=== PATIENT | male | born 1945 | race Two or more races ===

== ENCOUNTER → 2018-09-29 | Outpatient (CLI) | payer BC ==
[~2018-09-29] MED LIST: REGADENOSON 0.4 MG/5 ML DISP.SYRIN. IV ONE
--- NOTE | 2018-09-29 10:09 | CARD ---
MR#: [id number] Date of Study: 09/29/2018 Ordering Physician: CHARLENE HERNANDEZ, Referring Physician: CHARLENE HERNANDEZ Tech: Ashley Haney RDCS APPROVED REPORT EXAM: Two-dimensional and M-mode echocardiogram with Doppler and color Doppler. Other Information Quality : Good INDICATION Cardiac Disease: CAD 2D DIMENSIONS Left Atrium(2D)4.2 (1.6-4.0cm)IVSd1.3 (0.7-1.1cm) Aortic Root(2D)2.9 (2.0-3.7cm)LVDd5.0 (3.9-5.9cm) LVOT Diameter2.2 (1.8-2.4cm)PWd1.1 (0.7-1.1cm) LVDs3.8 (2.5-4.0cm)FS (%) 20.0 % SV58.2 mlLVEF(%)40.0 (>50%) Aortic Valve AoV Peak Konrad.122.2cm/sAoV VTI25.4cm AO Peak GR.6.0mmHgLVOT Peak Konrad.68.1cm/s LVOT VTI 16.63cmAO Mean GR.3mmHg LUIS (VMAX)2.10xk9UYJ (VTI)2.43cm2 AI P 1/2 Qpph040ha Mitral Valve MV E Cnjixjmt04.9cm/sMV DECEL QWGJ765oj MV A Ghpshlsp65.8cm/sMV JQW33wq E/A Ratio1.2MVA (PHT)4.39cm2 TDI E/Lateral E'31.7E/Medial E'22.8 Tricuspid Valve TR P. Ljkgtcmx682ze/sRAP NVTBVZZG5fhXj TR Peak Gr.76ngMkQNBJ06cnKb Pulmonary Vein S1 Wyubsokv57.4cm/sD2 Hnmtetth44.1cm/s LEFT VENTRICLE The left ventricle is normal size. There is mild asymmetric septal hypertrophy. Left ventricle systol ic function is mildly impaired. The Ejection Fraction is 40-45%. Basal inferior wall hypokinesis. RIGHT VENTRICLE The right ventricle is normal size. The right ventricular systolic function is normal. ATRIA The left atrium is mildly dilated. The right atrium size is normal. The interatrial septum is intact with no evidence for an atrial septal defect or patent foramen ovale as noted on 2-D or Doppler imagi ng. AORTIC VALVE The aortic valve is calcified but opens well. Doppler and Color Flow revealed mild to moderate aortic regurgitation. There is no significant aortic valvular stenosis. MITRAL VALVE The mitral valve is calcified but opens well. There is no evidence of mitral valve prolapse. There is no mitral valve stenosis. Doppler and Color-flow revealed mild to moderate mitral regurgitation. TRICUSPID VALVE The tricuspid valve is normal in structure and function. Doppler and Color Flow revealed trace tricus pid regurgitation. The PA pressure was estimated at 14 mmHg. There is no tricuspid valve stenosis. PULMONIC VALVE The pulmonic valve is not well visualized. Doppler and Color Flow revealed trace to mild pulmonic connie vular regurgitation. There is no pulmonic valvular stenosis. GREAT VESSELS The aortic root is normal in size. The ascending aorta is normal in size. The IVC is normal in size a nd collapses >50% with inspiration. PERICARDIAL EFFUSION There is no evidence of significant pericardial effusion. Critical Notification Critical Value: No <Conclusion> Basal inferior wall hypokinesis. The Ejection Fraction is 40-45%. Mild to moderate aortic regurgitation. Mild to moderate mitral regurgitation. Trace tricuspid regurgitation. The PA pressure was estimated at 14 mmHg. There is no evidence of significant pericardial effusion. Signed by : Charlene Hernandez, Electronically Approved : 09/29/2018 10:07:24
[2018-09-29] MEDS: REGADENOSON 0.4 MG/5 ML DISP.SYRIN. IV ONE (10:16)
--- NOTE | 2018-09-29 12:55 | RAD ---
MR#: [id number] Date of Study: 09/29/2018 Ordering Physician: CHARLENE HERNANDEZ, Referring Physician: MATILDA SERRANO Tech: Eyad Sands RT (R) (N)CELSO Mejia, CORINA (R) (N) APPROVED REPORT Test Type: Pharmacological Stress Nurse/Tech: Tania Oneal R.N./Nancie Hawthorne RN Test Indications: CP, CAD Cardiac History: Hypertension, CAD, ME with stents 8 years ago. Medications: See Electronic Medical Record Medical History: See Electronic Medical Record Resting ECG: SB with BBB and inverted t waves. Resting Heart Rate: 53 bpm Resting Blood Pressure: 191/88mmHg Pretest Chest Pain: No chest pain Nurse/Tech Notes S1S2, Lungs CTA Consent: The procedure was explained to the patient in lay terms. Informed consent was witnessed. Reji eout was entered into [employer]. History and Stress Test performed by RT Fito (R) (N) Pharm. Details Pharmacologic stress testing was performed using 0.4mg per 5ml of regadenoson given intravenously ove r 7-10 seconds. Stress Symptoms Dyspnea POST EXERCISE Reason for Termination: Infusion complete Max HR: 102 bpm Max Blood Pressure: 194/89mmHg Chest Pain: No. Arrhythmia: No. BBB and inverted t waves as previous. ST Change: No. INTERPRETATION Stress EKG Conclusion: Baseline EKG showed sinus rhythm with old inferior infarct. Non diagnostic ch anges at peak stress. No arrhythmias. Imaging Protocol IMAGE PROTOCOL: Rest Tc-99m/stress Tc-99m 1 day Rest: Stress: Viability: Radiopharm.Tc99m TjydzhewuHu04i Sestamibi Dose9.8mCi 32mCi Duration 15min. 10min. Img Date 09/29/2018 09/29/2018 Inj-Img Fjjt30dal. 60min. Rest Admin Site:IV - Right AntecubitalAdministrator:CELSO Mejia, CORINA (R)(N) Stress Admin Site: IV - Right AntecubitalAdministrator: Carroll Callaway, RT (R)(N) STRESS DATA End Diast. Vol.165.0mlAv. Heart Rate64.0bpm End Syst. Vol.89.0mlCO Index BSA0.0L/min Myocardial Ttyt780.0gEject. Plilhgdw63.0% Stress Rates Pk. Fill Rate1.77EDV/secLVtime Pk. Fill 90.04msec Pk. Empty Rate2.01ESV/secLVtime Pk. Edlrb815.35msec 08/26 Pk. Fill1.24EDV/sec Stress Scores Regional WT1.00Summed WT27.00 Regional WM0.00Summed WM24.00 LV Perfusion Scintigraphic images showed large predominantly fixed defect involving the inferior and inferolateral renae consistent with previous myocardial infarction with very small amount of reversibility consist ent with wilmer-infarct ischemia. Wall Motion Severe hypokinesis of the base to mid inferior wall with ejection fraction calculated at 46%. LV Perf. Quant 17 Seg. SSS24.00 17 Seg. SRS21.00 17 Seg. SDS4.00 Stress Defect Extent (% LAD)2.50Rest Defect Extent (% LAD)0.00Rev. Defect Extent (% LAD)2.50 Stress Defect Extent (% LCX) 93.80Rest Defect Extent (% LCX)86.30Rev. Defect Extent (% LCX)43.80 Stress Defect Extent (% RCA)58.90Rest Defect Extent (% RCA)64.40Rev. Defect Extent (% RCA)0.00 Stress Defect Extent (% STEVAN)38.70Rest Defect Extent (% STEVAN)33.90Rev. Defect Extent (% STEVAN)14.10 Conclusion 1. Regadenoson cardioisotope stress test showed a large infarct involving the inferior and inferolate ral renae with very small amount of wilmer-infarct ischemia. 2. Severe hypokinesis of the base to mid inferior wall with ejection fraction calculated at 46%. 3. Low to intermediate risk for cardiac events. Signed by : Charlene Hernandez, Electronically Approved : 09/29/2018 12:53:15
== END | disposition home or self-care (01) ==
LOC: ECHO 08:11
PROVIDERS: ATTEND Internal Medicine Cardiovascular Disease
DX: I08.0 Rheumatic disorders of both mitral and aortic valves (principal); I25.10 Atherosclerotic heart disease of native coronary artery without angina pectoris; I25.2 Old myocardial infarction; I10 Essential (primary) hypertension
CPT/HCPCS: 78452; 93017; 93306; 96374; A9500; J2785

== ENCOUNTER 2019-10-09 18:19 | Inpatient (IN) | payer BC ==
[~2019-10-09] VITALS: Ht 167.6 cm; Wt 70.8 kg
--- NOTE | 2019-10-09 20:39 | PHYS DOC ---
Past Medical History Past Medical History: Diabetes-Type I Additional Past Surgical Histo: CARDIAC STENTS Smoking Status: Never Smoker Alcohol Use: None Adult General Chief Complaint Chief Complaint: SYNCOPE HPI HPI 74-year-old male with underlying history of diabetes, hypertension, CAD presents to the emergency department with complaints of syncope. Family states this happened around approximately 11 AM today, unwitnessed, patient states he had no chest pain or shortness of breath prior to incident however became dizzy and lightheaded and passed out. This lasted approximately 2-3 minutes according to family. He has no history of syncopal episodes in the past. Patient denies any chest pain or shortness breath this time. Patient states nothing makes pain worse, nothing makes his pain better. Review of Systems Review of Systems Constitutional: Denies fever or chills [] Respiratory: Denies cough or shortness of breath [] Cardiovascular: No additional information not addressed in HPI [] GI: Denies abdominal pain, nausea, vomiting, bloody stools or diarrhea [] Musculoskeletal: Denies back pain or joint pain [] Integument: Denies rash or skin lesions [] Neurologic: headache, no focal weakness or sensory changes [] All other systems were reviewed and found to be within normal limits, except as documented in this note. Current Medications Current Medications Current Medications Medications (Trade) Dose Ordered Sig/[facility] Start Time Stop Time Status Last Admin Dose Admin Aspirin (Children'S Aspirin) 324 mg 1X ONCE 10/09/19 22:00 10/09/19 22:01 DC 10/09/19 21:50 324 MG Heparin Sodium (Porcine) (Heparin Sodium) 2,050 unit PRN Q6HRS PRN 10/09/19 21:45 10/09/19 21:52 2,050 UNIT Heparin Sodium/ Dextrose 250 ml @ 0 mls/hr CONT PRN 10/09/19 21:45 10/09/19 22:03 8.4 MLS/HR Allergies Allergies Allergies Coded Allergies Type Severity Reaction Last Updated Verified No Known Drug Allergies 09/29/18 No Physical Exam Physical Exam Constitutional: Well developed, well nourished, no acute distress, non-toxic appearance. [] HENT: Normocephalic, atraumatic, bilateral external ears normal, oropharynx moist, no oral exudates, nose normal. [] Eyes: PERRLA, EOMI, conjunctiva normal, no discharge. [] Neck: Normal range of motion, no tenderness, supple, no stridor. [] Cardiovascular:Heart rate regular rhythm, no murmur [] Lungs & Thorax: Bilateral breath sounds clear to auscultation [] Abdomen: Bowel sounds normal, soft, no tenderness, no masses, no pulsatile masses. [] Skin: Warm, dry, no erythema, no rash. [] Back: No tenderness, no CVA tenderness. [] Extremities: No tenderness, no edema. [] Neurologic: Alert and oriented X 3, no focal deficits noted. [] Psychologic: Affect normal, judgement normal, mood normal. [] Current Patient Data Vital Signs Vital Signs Date Time Temp Pulse Resp B/P (MAP) Pulse Ox O2 Delivery O2 Flow Rate FiO2 10/09/19 19:40 98.4 92 17 151/90 (110) 92 Room Air 98.4 Lab Values Laboratory Tests Test 10/09/19 19:56 10/09/19 20:05 Glucose (Fingerstick) 295 mg/dL (70-99) H White Blood Count 7.6 x10^3/uL (4.0-11.0) Red Blood Count 4.91 x10^6/uL (4.30-5.70) Hemoglobin 15.4 g/dL (13.0-17.5) Hematocrit 45.0 % (39.0-53.0) Mean Corpuscular Volume 92 fL (79-100) Mean Corpuscular Hemoglobin 31 pg (25-35) Mean Corpuscular Hemoglobin Concent 34 g/dL (31-37) Red Cell Distribution Width 13.0 % (11.5-14.5) Platelet Count 138 x10^3/uL (140-400) L Neutrophils (%) (Auto) 80 % (31-73) H Lymphocytes (%) (Auto) 10 % (24-48) L Monocytes (%) (Auto) 9 % (0-9) Eosinophils (%) (Auto) 0 % (0-3) Basophils (%) (Auto) 1 % (0-3) Neutrophils # (Auto) 6.1 x10^3/uL (1.8-7.7) Lymphocytes # (Auto) 0.8 x10^3/uL (1.0-4.8) L Monocytes # (Auto) 0.7 x10^3/uL (0.0-1.1) Eosinophils # (Auto) 0.0 x10^3/uL (0.0-0.7) Basophils # (Auto) 0.0 x10^3/uL (0.0-0.2) D-Dimer (Amelia) 0.68 ug/mlFEU (0.00-0.50) H Sodium Level 130 mmol/L (136-145) L Potassium Level 4.3 mmol/L (3.5-5.1) Chloride Level 94 mmol/L (98-107) L Carbon Dioxide Level 26 mmol/L (21-32) Anion Gap 10 (6-14) Blood Urea Nitrogen 17 mg/dL (8-26) Creatinine 1.1 mg/dL (0.7-1.3) Estimated GFR (Cockcroft-Gault) 65.6 BUN/Creatinine Ratio 15 (6-20) Glucose Level 305 mg/dL (70-99) H Calcium Level 8.5 mg/dL (8.5-10.1) Magnesium Level 1.7 mg/dL (1.8-2.4) L Total Bilirubin 0.6 mg/dL (0.2-1.0) Aspartate Amino Transferase (AST) 34 U/L (15-37) Alanine Aminotransferase (ALT) 46 U/L (16-63) Alkaline Phosphatase 120 U/L (46-116) H Troponin I Quantitative 0.085 ng/mL (0.000-0.055) Total Protein 7.5 g/dL (6.4-8.2) Albumin 3.4 g/dL (3.4-5.0) Albumin/Globulin Ratio 0.8 (1.0-1.7) L Laboratory Tests 10/09/19 20:05 Laboratory Tests 10/09/19 20:05 EKG EKG EKG reviewed, ST depression laterally, left axis deviation, heart rate 86, normal sinus rhythm, no STEMI, interpretation time 1999[] Radiology/Procedures Radiology/Procedures [facility] [address] [place], [place] [id number] IMAGING REPORT Signed PATIENT: JETT BARNEYACCOUNT: [id number] : 1945 LOCATION: ER AGE: 74 SEX: M EXAM STATUS: REG ER ORD. PHYSICIAN: SARAH BROWN MD REASON: Syncope, Head injury, + LOC PROCEDURE: CT HEAD WO CONTRAST Exam: CT head INDICATION: Syncope, head injury TECHNIQUE: Sequential axial images through the head were obtained without the administration of IV contrast. Comparisons: None FINDINGS: No focal parenchymal lesion or hemorrhage is identified. There is no midline shift or sulcal effacement. No acute vascular territory infarction is identified. Rod-white distinction is preserved. The ventricular system is within normal limits without compression hydrocephalus. The basal cisterns are well maintained. Mucosal thickening in the left maxillary sinus and left nasal cavity. No acute fractures. IMPRESSION: No acute intracranial abnormality. Sinus disease as described above. Exposure: One or more of the following in the visualized dose reduction techniques were utilized for this examination: 1. Automated exposure control 2. Adjustment of the MA and/or KV according to patient size Use of iterative of reconstructive technique Electronically signed by: Elsi Birmingham MD (10/09/2019 9:17 PM) [id number] DICTATED and SIGNED BY: ELSI BIRMINGHAM MD DATE: 10/09/192116 [] Chest xray reveals no evidence of acute process - wet read 2202 Course & Med Decision Making Course & Med Decision Making Pertinent Labs and Imaging studies reviewed. (See chart for details) []74-year-old male with underlying history of diabetes, hypertension, CAD presents to the emergency department with complaints of syncope. Family states this happened around approximately 11 AM today, unwitnessed, patient states he had no chest pain or shortness of breath prior to incident however became dizzy and lightheaded and passed out. This lasted approximately 2-3 minutes according to family. He has no history of syncopal episodes in the past. Patient denies any chest pain or shortness breath this time. Patient states nothing makes pain worse, nothing makes his pain better. Laboratory values reviewed, sodium 130, magnesium 1.7, troponin 0.085, blood glucose 355. IVF provided in ER ASA/Heparin drip initiated ER - cardiology consult placed Magnesium replaced in ER Discussed admit with Cardiology Yasmeen Disclaimer Dragsahil Disclaimer This electronic medical record was generated, in whole or in part, using a voice recognition dictation system. Departure Departure Impression: Primary Impression: Syncope and collapse Additional Impressions: NSTEMI (non-ST elevated myocardial infarction) Hypomagnesemia Disposition: ADMITTED INPATIENT Admitting Physician: CARLYN Condition: STABLE Referrals: NO PCP (PCP) Critical Care Time Critical care time was 35 minutes exclusive of procedures. Problem Qualifiers SARAH BROWN MD Oct 09, 2019 20:39
[2019-10-09 20:41] LABS: BASO % 1 % (0-3); EOS % 0 % (0-3); HEMOGLOBIN 15.4 g/dL (13.0-17.5); LYMPH # 0.8 x10^3/uL (1.0-4.8); LYMPH % 10 % (24-48); MEAN CORPUSCULAR HEMOGLOBIN 31 pg (25-35); MEAN CORPUSCULAR HGB CONC 34 g/dL (31-37); MEAN CORPUSCULAR VOLUME 92 fL (79-100); MONO # 0.7 x10^3/uL (0.0-1.1); MONO % 9 % (0-9); NEUT # 6.1 x10^3/uL (1.8-7.7); NEUT % 80 % (31-73); PLATELET COUNT 138 x10^3/uL (140-400); RED BLOOD COUNT 4.91 x10^6/uL (4.30-5.70); WHITE BLOOD COUNT 7.6 x10^3/uL (4.0-11.0)
[2019-10-09 20:48] LABS: CALCIUM 8.5 mg/dL (8.5-10.1); CREATININE 1.1 mg/dL (0.7-1.3); GFR 65.6; POTASSIUM 4.3 mmol/L (3.5-5.1)
[2019-10-09 20:54] LABS: ALBUMIN 3.4 g/dL (3.4-5.0); ALBUMIN/GLOBULIN RATIO 0.8 (1.0-1.7); MAGNESIUM 1.7 mg/dL (1.8-2.4); TOTAL BILIRUBIN 0.6 mg/dL (0.2-1.0); TOTAL PROTEIN 7.5 g/dL (6.4-8.2)
--- NOTE | 2019-10-09 21:20 | RAD ---
Exam: CT head INDICATION: Syncope, head injury TECHNIQUE: Sequential axial images through the head were obtained without the administration of IV contrast. Comparisons: None FINDINGS: No focal parenchymal lesion or hemorrhage is identified. There is no midline shift or sulcal effacement. No acute vascular territory infarction is identified. Rod-white distinction is preserved. The ventricular system is within normal limits without compression hydrocephalus. The basal cisterns are well maintained. Mucosal thickening in the left maxillary sinus and left nasal cavity. No acute fractures. IMPRESSION: No acute intracranial abnormality. Sinus disease as described above. Exposure: One or more of the following in the visualized dose reduction techniques were utilized for this examination: 1. Automated exposure control 2. Adjustment of the MA and/or KV according to patient size Use of iterative of reconstructive technique Electronically signed by: Elsi Johnson MD (10/09/2019 9:17 PM) [id number]
[2019-10-09] MEDS ORDERED: HEPARIN for IV BOLUS 10,000 UNIT/10 ML VIAL. IV PRN (21:45)
[2019-10-09] MEDS ORDERED: ASPIRIN CHEWABLE 81 MG TABLET. PO ONE (22:00)
[2019-10-09] MEDS: HEPARIN 25,000UTS/250ML PREMIX 250 ML IV PRN (22:03)
[2019-10-09] MEDS ORDERED: ONDANSETRON PF 4 MG/2 ML VIAL. IV PRN (22:30)
[2019-10-09] MEDS ORDERED: MORPHINE SULFATE 2 MG/ML VIAL. IV PRN (22:30)
[2019-10-09] MEDS ORDERED: DEXTROSE 50% 25 GM / 50ML DISP.SYRIN. IV PRN (22:30)
[2019-10-09] MEDS ORDERED: ACETAMINOPHEN 325 MG TABLET. PO PRN (22:30)
[2019-10-09] MEDS ORDERED: NITROGLYCERIN SUBLINGUAL 0.4 MG BOTTLE OF 25. SL PRN (22:30)
--- NOTE | 2019-10-09 22:52 | EKG ---
[facility] [address] [place] [address] Test Date: 2019-10-09 Test Time: 19:55:38 Pat Name: JETT KAURUIHALI ALVARES Department: Room: Gender: M Driver/Refuse Collector: : 1945 Requested By: SARAH BROWN Order Number: [id number] Reading MD: Measurements Intervals [place] Rate: 86 P: 24 IN: 174 QRS: -7 QRSD: 106 T: 168 QT: 376 QTc: 453 Interpretive Statements SINUS RHYTHM LEFTWARD AXIS QRS(T) CONTOUR ABNORMALITY CONSIDER ANTEROLATERAL INFARCT CONSISTENT WITH INFERIOR INFARCT AGE UNDETERMINED ABNORMAL ECG RI6.01 No previous ECG available for comparison
[2019-10-09] MEDS ORDERED: IV NORMAL SALINE 1000ML BAG 1,000 ML IV ONE (23:00)
--- NOTE | 2019-10-09 23:14 | RAD ---
AP portable chest radiograph 10/09/2019 Clinical History: Syncope. An AP erect portable digital radiograph of the chest was obtained. The cardiac silhouette is borderline enlarged. The thoracic aorta is mildly tortuous. Atherosclerotic calcification thoracic aorta is seen. No acute pulmonary infiltrate is noted. No pneumothorax or pleural effusion is seen. Degenerative changes are seen involving the thoracic spine. IMPRESSION: No acute abnormality is seen. Electronically signed by: Richard Merrill MD (10/09/2019 11:11 PM) [id number]
[2019-10-10] MEDS: ANTI-COAG MONITOR BY PHARMACY. MC PRN (04:03)
[2019-10-10 05:02] LABS: BASO % 1 % (0-3); EOS % 0 % (0-3); HEMATOCRIT 41.6 % (39.0-53.0); HEMOGLOBIN 14.2 g/dL (13.0-17.5); LYMPH # 1.6 x10^3/uL (1.0-4.8); LYMPH % 27 % (24-48); MEAN CORPUSCULAR HEMOGLOBIN 31 pg (25-35); MEAN CORPUSCULAR HGB CONC 34 g/dL (31-37); MEAN CORPUSCULAR VOLUME 92 fL (79-100); MONO # 0.6 x10^3/uL (0.0-1.1); MONO % 10 % (0-9); NEUT # 3.7 x10^3/uL (1.8-7.7); NEUT % 61 % (31-73); PLATELET COUNT 123 x10^3/uL (140-400); RED BLOOD COUNT 4.51 x10^6/uL (4.30-5.70); RED CELL DISTRIBUTION WIDTH 13.1 % (11.5-14.5)
[2019-10-10 05:43] LABS: CALCIUM 8.1 mg/dL (8.5-10.1); CREATININE 1.1 mg/dL (0.7-1.3); GFR 65.6; POTASSIUM 3.9 mmol/L (3.5-5.1); TOTAL BILIRUBIN 0.4 mg/dL (0.2-1.0); TOTAL PROTEIN 6.1 g/dL (6.4-8.2)
[2019-10-10] MEDS ORDERED: INSULIN LISPRO 300 UNITS/3 ML VIAL. SQ SCH (08:00)
[2019-10-10] MEDS ORDERED: guaiFENesin ORAL 200 MG/10 ML LIQUID. PO PRN (09:00)
[2019-10-10] MEDS ORDERED: ACETAMINOPHEN 325 MG TABLET. PO PRN (09:00)
[2019-10-10] MEDS ORDERED: DOCUSATE SODIUM 100 MG CAPSULE. PO PRN (09:00)
[2019-10-10] MEDS ORDERED: DEXTROSE 50% 25 GM / 50ML DISP.SYRIN. IV PRN (09:00)
[2019-10-10] MEDS ORDERED: ALBUTEROL SULFATE 2.5 MG/3 ML NEBU. NEB PRN (09:00)
[2019-10-10] MEDS ORDERED: ONDANSETRON PF 4 MG/2 ML VIAL. IV PRN (09:00)
[2019-10-10] MEDS ORDERED: ZOLPIDEM 5 MG TABLET. PO PRN (09:00)
[2019-10-10] MEDS: NYSTATIN TOPICAL POWDER 15GM BOTTLE. TP SCH ×2 (09:54→21:00)
[2019-10-10] MEDS: INSULIN LISPRO 300 UNITS/3 ML VIAL. SQ SCH ×2 (12:00→17:36)
[2019-10-10] MEDS: HEPARIN 25,000UTS/250ML PREMIX 250 ML IV PRN ×2 (12:22→23:27)
[2019-10-10 15:00] VITALS: BP 151/80
--- NOTE | 2019-10-10 16:12 | PDOC1 ---
History and Physical Date of Admission Date of Admission 10/10/2019 Identification/Chief Complaint Chief Complaint I will feel well History of Present Illness History of Present Illness Patient is a 74-year-old gentleman with past medical history of diabetes hypertension coronary artery disease who comes today complaining off multiple ailments. The patient relates to me that he has not been feeling well for several months. Daughter is at bedside helping with the history taking. The patient at first did not revealed the main reason for his family members to bring him to the emergency department which was a syncopal episode apparently lasted about 2-3 minutes witnessed with no seizure-like activity. The patient denies any aura-type of symptoms no palpitations no shortness of breath no dyspnea on exertion either no chest pain prior to the incident. The patient denied any coughing spells he was not straining and he did not sent post ictal period. On to have a mildly elevated troponin reason why we were asked to admit the patient. When asked regarding his medical problems the patient says that he takes care of his hypertension diabetes with "herbal medicines". The patient checks his glycemia frequently and as per daughter his readings are in the mid 200s. He does not seem to understand dietary principles of low sodium or low glycemic foods. The patient denies headache no blurred vision no slurred speech no hemiparesis no hemiplegia no paresthesias were reported either no recent ulcers or skin rashes either no nausea vomiting diarrhea no gastroparesis-type of symptoms reported either. Plan of care has been explained detail all concerns were addressed the best of my abilities Past Medical History Cardiovascular: CAD, HTN, Hyperlipidemia Endocrine: Diabetes Current Problem List Problem List Problems Medical Problems: (1) Hypomagnesemia Status: Acute (2) NSTEMI (non-ST elevated myocardial infarction) Status: Acute (3) Syncope and collapse Status: Acute Current Medications Current Medications Current Medications Medications (Trade) Dose Ordered Sig/Tasneem Start Time Stop Time Status Last Admin Dose Admin Acetaminophen (Tylenol) 650 mg PRN Q4HRS PRN 10/10/19 09:00 Albuterol Sulfate (Ventolin Neb Soln) 2.5 mg PRN Q4HRS PRN 10/10/19 09:00 10/10/19 11:53 2.5 MG Aspirin (Children'S Aspirin) 324 mg 1X ONCE 10/09/19 22:00 10/09/19 22:01 DC 10/09/19 21:50 324 MG Dextrose (Dextrose 50%-Water Syringe) 12.5 gm PRN Q15MIN PRN 10/10/19 09:00 Docusate Sodium (Colace) 100 mg PRN BID PRN 10/10/19 09:00 Guaifenesin (Robitussin) 200 mg PRN Q4HRS PRN 10/10/19 09:00 Heparin Sodium (Porcine) (Heparin Sodium) 2,050 unit PRN Q6HRS PRN 10/09/19 21:45 10/09/19 21:52 2,050 UNIT Heparin Sodium/ Dextrose 250 ml @ 0 mls/hr CONT PRN 10/09/19 21:45 10/10/19 12:22 9.8 MLS/HR Info (Anti-Coagulation Monitoring By Pharmacy) 1 each PRN DAILY PRN 10/09/19 22:45 10/10/19 04:03 1 EACH Insulin Human Lispro (HumaLOG) 0-7 UNITS TIDWMEALS 10/10/19 12:00 Morphine Sulfate (Morphine Sulfate) 2 mg PRN Q2HR PRN 10/09/19 22:30 10/10/19 22:29 Nitroglycerin (Nitrostat) 0.4 mg PRN Q5MIN PRN 10/09/19 22:30 10/10/19 22:29 Nystatin (Nystop) 1 bryan BID 10/10/19 09:00 10/10/19 09:54 1 BRYAN Ondansetron HCl (Zofran) 4 mg PRN Q4HRS PRN 10/10/19 09:00 Sodium Chloride 1,000 ml @ 1,000 mls/hr 1X ONCE 10/09/19 23:00 10/09/19 23:59 DC 10/10/19 01:33 1,000 MLS/HR Zolpidem Tartrate (Ambien) 5 mg PRN QHS PRN 10/10/19 09:00 Allergies Allergies Allergies Coded Allergies Type Severity Reaction Last Updated Verified No Known Drug Allergies 09/29/18 No ROS Review of System CONSTITUTIONAL: No fever or chills EYES: No recent changes SKIN: No rash or itching CARDIOVASCULAR: No chest pain, syncope, palpitations, or edema RESPIRATORY: No SOB or cough GASTROINTESTINAL: No nausea, vomiting or abdominal pain NEUROLOGICAL: No headaches or weakness ENDOCRINE: No cold or heat intolerance GENITOURINARY: No urgency or frequency of urination MUSCULOSKELETAL: No back pain or joint pain LYMPHATICS: No enlarged lymph nodes PSYCHIATRIC: No anxiety or depression Physical Exam Physical Exam Gen.: well-developed well-nourished in no apparent distress Head: Normal shape atraumatic Eyes: Pupils equal reactive to light and accommodation, normal conjunctivae and lids Ears: Normal shape Nose: Normal shape no trauma Mouth: No exudates of the back of throat no thrush no lesions Neck: Supple no JVD no carotid bruit or lymphadenopathy no thyromegaly Chest: Lungs clear to auscultation with good inspiratory effort no crackles rales or rhonchi Cardiovascular: S1-S2 regular rhythm no murmurs gallops or rubs Abdomen: Bowel sounds present soft nontender no hepatosplenomegaly appreciated sign Extremities: No clubbing no cyanosis no edema peripheral pulses palpated bilaterally Neurological: Alert awake oriented in person time place and situation, cranial nerves II through XII intact, no motor or sensory deficits appreciated Psych: Appropriate mood, cooperative Vitals Vitals Vital Signs Date Time Temp Pulse Resp B/P (MAP) Pulse Ox O2 Delivery O2 Flow Rate FiO2 10/10/19 15:25 Room Air 10/10/19 15:00 98.7 106 20 151/80 (103) 98.7 10/10/19 11:51 96 Labs Labs Laboratory Tests Test 10/09/19 19:56 10/09/19 20:05 10/10/19 01:15 10/10/19 04:25 Glucose (Fingerstick) 295 mg/dL (70-99) White Blood Count 7.6 x10^3/uL (4.0-11.0) 6.0 x10^3/uL (4.0-11.0) Red Blood Count 4.91 x10^6/uL (4.30-5.70) 4.51 x10^6/uL (4.30-5.70) Hemoglobin 15.4 g/dL (13.0-17.5) 14.2 g/dL (13.0-17.5) Hematocrit 45.0 % (39.0-53.0) 41.6 % (39.0-53.0) Mean Corpuscular Volume 92 fL (79-100) 92 fL (79-100) Mean Corpuscular Hemoglobin 31 pg (25-35) 31 pg (25-35) Mean Corpuscular Hemoglobin Concent 34 g/dL (31-37) 34 g/dL (31-37) Red Cell Distribution Width 13.0 % (11.5-14.5) 13.1 % (11.5-14.5) Platelet Count 138 x10^3/uL (140-400) 123 x10^3/uL (140-400) Neutrophils (%) (Auto) 80 % (31-73) 61 % (31-73) Lymphocytes (%) (Auto) 10 % (24-48) 27 % (24-48) Monocytes (%) (Auto) 9 % (0-9) 10 % (0-9) Eosinophils (%) (Auto) 0 % (0-3) 0 % (0-3) Basophils (%) (Auto) 1 % (0-3) 1 % (0-3) Neutrophils # (Auto) 6.1 x10^3/uL (1.8-7.7) 3.7 x10^3/uL (1.8-7.7) Lymphocytes # (Auto) 0.8 x10^3/uL (1.0-4.8) 1.6 x10^3/uL (1.0-4.8) Monocytes # (Auto) 0.7 x10^3/uL (0.0-1.1) 0.6 x10^3/uL (0.0-1.1) Eosinophils # (Auto) 0.0 x10^3/uL (0.0-0.7) 0.0 x10^3/uL (0.0-0.7) Basophils # (Auto) 0.0 x10^3/uL (0.0-0.2) 0.0 x10^3/uL (0.0-0.2) D-Dimer (Amelia) 0.68 ug/mlFEU (0.00-0.50) Sodium Level 130 mmol/L (136-145) 136 mmol/L (136-145) Potassium Level 4.3 mmol/L (3.5-5.1) 3.9 mmol/L (3.5-5.1) Chloride Level 94 mmol/L (98-107) 101 mmol/L (98-107) Carbon Dioxide Level 26 mmol/L (21-32) 26 mmol/L (21-32) Anion Gap 10 (6-14) 9 (6-14) Blood Urea Nitrogen 17 mg/dL (8-26) 20 mg/dL (8-26) Creatinine 1.1 mg/dL (0.7-1.3) 1.1 mg/dL (0.7-1.3) Estimated GFR (Cockcroft-Gault) 65.6 65.6 BUN/Creatinine Ratio 15 (6-20) 18 (6-20) Glucose Level 305 mg/dL (70-99) 214 mg/dL (70-99) Calcium Level 8.5 mg/dL (8.5-10.1) 8.1 mg/dL (8.5-10.1) Magnesium Level 1.7 mg/dL (1.8-2.4) Total Bilirubin 0.6 mg/dL (0.2-1.0) 0.4 mg/dL (0.2-1.0) Aspartate Amino Transf (AST/SGOT) 34 U/L (15-37) 29 U/L (15-37) Alanine Aminotransferase (ALT/SGPT) 46 U/L (16-63) 43 U/L (16-63) Alkaline Phosphatase 120 U/L (46-116) 107 U/L (46-116) Troponin I Quantitative 0.085 ng/mL (0.000-0.055) 0.099 ng/mL (0.000-0.055) 0.071 ng/mL (0.000-0.055) Total Protein 7.5 g/dL (6.4-8.2) 6.1 g/dL (6.4-8.2) Albumin 3.4 g/dL (3.4-5.0) 3.0 g/dL (3.4-5.0) Albumin/Globulin Ratio 0.8 (1.0-1.7) 1.0 (1.0-1.7) Test 10/10/19 09:56 10/10/19 10:15 10/10/19 11:31 Glucose (Fingerstick) 244 mg/dL (70-99) 301 mg/dL (70-99) Heparin Anti-Xa Act, Unfractionated 0.26 IU/mL (0.30-0.70) Laboratory Tests Test 10/09/19 19:56 10/09/19 20:05 10/10/19 01:15 10/10/19 04:25 Glucose (Fingerstick) 295 mg/dL (70-99) White Blood Count 7.6 x10^3/uL (4.0-11.0) 6.0 x10^3/uL (4.0-11.0) Red Blood Count 4.91 x10^6/uL (4.30-5.70) 4.51 x10^6/uL (4.30-5.70) Hemoglobin 15.4 g/dL (13.0-17.5) 14.2 g/dL (13.0-17.5) Hematocrit 45.0 % (39.0-53.0) 41.6 % (39.0-53.0) Mean Corpuscular Volume 92 fL (79-100) 92 fL (79-100) Mean Corpuscular Hemoglobin 31 pg (25-35) 31 pg (25-35) Mean Corpuscular Hemoglobin Concent 34 g/dL (31-37) 34 g/dL (31-37) Red Cell Distribution Width 13.0 % (11.5-14.5) 13.1 % (11.5-14.5) Platelet Count 138 x10^3/uL (140-400) 123 x10^3/uL (140-400) Neutrophils (%) (Auto) 80 % (31-73) 61 % (31-73) Lymphocytes (%) (Auto) 10 % (24-48) 27 % (24-48) Monocytes (%) (Auto) 9 % (0-9) 10 % (0-9) Eosinophils (%) (Auto) 0 % (0-3) 0 % (0-3) Basophils (%) (Auto) 1 % (0-3) 1 % (0-3) Neutrophils # (Auto) 6.1 x10^3/uL (1.8-7.7) 3.7 x10^3/uL (1.8-7.7) Lymphocytes # (Auto) 0.8 x10^3/uL (1.0-4.8) 1.6 x10^3/uL (1.0-4.8) Monocytes # (Auto) 0.7 x10^3/uL (0.0-1.1) 0.6 x10^3/uL (0.0-1.1) Eosinophils # (Auto) 0.0 x10^3/uL (0.0-0.7) 0.0 x10^3/uL (0.0-0.7) Basophils # (Auto) 0.0 x10^3/uL (0.0-0.2) 0.0 x10^3/uL (0.0-0.2) D-Dimer (Amelia) 0.68 ug/mlFEU (0.00-0.50) Sodium Level 130 mmol/L (136-145) 136 mmol/L (136-145) Potassium Level 4.3 mmol/L (3.5-5.1) 3.9 mmol/L (3.5-5.1) Chloride Level 94 mmol/L (98-107) 101 mmol/L (98-107) Carbon Dioxide Level 26 mmol/L (21-32) 26 mmol/L (21-32) Anion Gap 10 (6-14) 9 (6-14) Blood Urea Nitrogen 17 mg/dL (8-26) 20 mg/dL (8-26) Creatinine 1.1 mg/dL (0.7-1.3) 1.1 mg/dL (0.7-1.3) Estimated GFR (Cockcroft-Gault) 65.6 65.6 BUN/Creatinine Ratio 15 (6-20) 18 (6-20) Glucose Level 305 mg/dL (70-99) 214 mg/dL (70-99) Calcium Level 8.5 mg/dL (8.5-10.1) 8.1 mg/dL (8.5-10.1) Magnesium Level 1.7 mg/dL (1.8-2.4) Total Bilirubin 0.6 mg/dL (0.2-1.0) 0.4 mg/dL (0.2-1.0) Aspartate Amino Transf (AST/SGOT) 34 U/L (15-37) 29 U/L (15-37) Alanine Aminotransferase (ALT/SGPT) 46 U/L (16-63) 43 U/L (16-63) Alkaline Phosphatase 120 U/L (46-116) 107 U/L (46-116) Troponin I Quantitative 0.085 ng/mL (0.000-0.055) 0.099 ng/mL (0.000-0.055) 0.071 ng/mL (0.000-0.055) Total Protein 7.5 g/dL (6.4-8.2) 6.1 g/dL (6.4-8.2) Albumin 3.4 g/dL (3.4-5.0) 3.0 g/dL (3.4-5.0) Albumin/Globulin Ratio 0.8 (1.0-1.7) 1.0 (1.0-1.7) Test 10/10/19 09:56 10/10/19 10:15 10/10/19 11:31 Glucose (Fingerstick) 244 mg/dL (70-99) 301 mg/dL (70-99) Heparin Anti-Xa Act, Unfractionated 0.26 IU/mL (0.30-0.70) VTE Prophylaxis Ordered VTE Prophylaxis Devices: Yes VTE Pharmacological Prophylaxi: Yes Assessment/Plan Assessment/Plan Elevated troponin Essential hypertension currently uncontrolled Diabetes mellitus type II uncontrolled Dyslipidemia Hyponatremia result Hypomagnesemia Medication non adherence Plan: Will check HBA1C will resume home medications once available replace magnesium cardiology consultation, most likely etiology type 2 nstemi will follow recommendations from [employer] product consultant. Diabetic education Nutritional education DVT prophylaxis patient on heparin Further recommendations based on the clinical course IVONNE MALAGON MD Oct 10, 2019 16:12
[2019-10-10] MEDS ORDERED: MAGNESIUM SULFATE 1GM 100 ML IV ONE (16:15)
--- NOTE | 2019-10-10 18:06 | PDOC2 ---
CONSULT Date of Consult Date of Consult DATE: 10/10/19 TIME: 18:00 Reason for Consult Reason for Consult: Syncope Referring Physician Referring Physician: Identification/Chief Complaint Chief Complaint Episode of passing out Source Source: Chart review, Patient History of Present Illness Reason for Visit: The patient is a 74-year-old male with a history of coronary artery disease, hypertension and diabetes mellitus who had an episode of syncope lasting approximately 2 minutes. Patient states that he felt dizzy and then passed out. No CPR was performed as per report. Patient awoke and was transported to the emergency room. He denied any chest pain, shortness of breath RRR prior to the event. Initial labs showed an elevated glucose of 214, a troponin of 0.071 and a magnesium of 1.7. Patient's magnesium is being replaced. He is resting comfortably in bed with no chest pain. He is in a sinus rhythm. His EKG shows a sinus rhythm with slight ST changes in lead 3 and lateral T-wave inversion. CT head scan shows no acute changes. Chest x-ray shows no acute changes. 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 Past Medical History Cardiovascular: CAD, HTN, Hyperlipidemia Endocrine: Diabetes Past Surgical History Past Surgical History: No pertinent history Family History Family History: Hypertension Social History No Current Problem List Problem List Problems Medical Problems: (1) Hypomagnesemia Status: Acute (2) NSTEMI (non-ST elevated myocardial infarction) Status: Acute (3) Syncope and collapse Status: Acute Current Medications Current Medications Current Medications Aspirin (Children'S Aspirin) 324 mg 1X ONCE PO Last administered on 10/09/19at 21:50; Start 10/09/19 at 22:00; Stop 10/09/19 at 22:01; Status DC Heparin Sodium/ Dextrose 250 ml @ 0 mls/hr CONT PRN IV PER PROTOCOL Last administered on 10/10/19at 12:22; Start 10/09/19 at 21:45 Heparin Sodium (Porcine) (Heparin Sodium) 2,050 unit PRN Q6HRS PRN IV FOR UFH LEVEL LESS THAN 0.2 Last administered on 10/09/19at 21:52; Start 10/09/19 at 21:45 Ondansetron HCl (Zofran) 4 mg PRN Q8HRS PRN IV NAUSEA/VOMITING 1st choice; Start 10/09/19 at 22:30; Stop 10/10/19 at 08:55; Status DC Morphine Sulfate (Morphine Sulfate) 2 mg PRN Q2HR PRN IV SEVERE PAIN 7-10; Start 10/09/19 at 22:30; Stop 10/10/19 at 22:29 Acetaminophen (Tylenol) 650 mg PRN Q4HRS PRN PO FEVER; Start 10/09/19 at 22:30; Stop 10/10/19 at 08:55; Status DC Nitroglycerin (Nitrostat) 0.4 mg PRN Q5MIN PRN SL CHEST PAIN; Start 10/09/19 at 22:30; Stop 10/10/19 at 22:29 Sodium Chloride 1,000 ml @ 1,000 mls/hr 1X ONCE IV Last administered on 10/10/19at 01:33; Start 10/09/19 at 23:00; Stop 10/09/19 at 23:59; Status DC Insulin Human Lispro (HumaLOG) 0-5 UNITS TIDWMEALS SQ ; Start 10/10/19 at 08:00; Stop 10/10/19 at 08:57; Status DC Dextrose (Dextrose 50%-Water Syringe) 12.5 gm PRN Q15MIN PRN IV SEE COMMENTS; Start 10/09/19 at 22:30; Stop 10/10/19 at 08:57; Status DC Info (Anti-Coagulation Monitoring By Pharmacy) 1 each PRN DAILY PRN MC SEE COMMENTS Last administered on 10/10/19at 04:03; Start 10/09/19 at 22:45 Ondansetron HCl (Zofran) 4 mg PRN Q4HRS PRN IV NAUSEA/VOMITING; Start 10/10/19 at 09:00 Zolpidem Tartrate (Ambien) 5 mg PRN QHS PRN PO INSOMNIA; Start 10/10/19 at 09:00 Acetaminophen (Tylenol) 650 mg PRN Q4HRS PRN PO TEMP OVER 100.4F OR MILD PAIN; Start 10/10/19 at 09:00 Docusate Sodium (Colace) 100 mg PRN BID PRN PO CONSTIPATION; Start 10/10/19 at 09:00 Albuterol Sulfate (Ventolin Neb Soln) 2.5 mg PRN Q4HRS PRN NEB SHORTNESS OF BREATH Last administered on 10/10/19at 11:53; Start 10/10/19 at 09:00 Guaifenesin (Robitussin) 200 mg PRN Q4HRS PRN PO COUGH; Start 10/10/19 at 09:00 Insulin Human Lispro (HumaLOG) 0-7 UNITS TIDWMEALS SQ Last administered on 10/10/19at 17:36; Start 10/10/19 at 12:00 Dextrose (Dextrose 50%-Water Syringe) 12.5 gm PRN Q15MIN PRN IV SEE COMMENTS; Start 10/10/19 at 09:00 Nystatin (Nystop) 1 bryan BID TP Last administered on 10/10/19at 09:54; Start 10/10/19 at 09:00 Magnesium Sulfate/ Dextrose 100 ml @ 100 mls/hr 1X ONCE IV ; Start 10/10/19 at 16:15; Stop 10/10/19 at 17:14; Status DC Allergies Allergies: Coded Allergies: No Known Drug Allergies (Unverified , 09/29/18) ROS General: YES: Fatigue, Malaise Cardiovascular: yes Other (syncope) Physical Exam General: No acute distress HEENT: Atraumatic Lungs: Clear to auscultation Heart: Regular rate Abdomen: Normal bowel sounds Vitals VITALS Vital Signs Date Time Temp Pulse Resp B/P (MAP) Pulse Ox O2 Delivery O2 Flow Rate FiO2 10/10/19 15:25 Room Air 10/10/19 15:00 98.7 106 20 151/80 (103) 98.7 10/10/19 11:51 96 Labs Labs Laboratory Tests Test 10/09/19 19:56 10/09/19 20:05 10/10/19 01:15 10/10/19 04:25 Glucose (Fingerstick) 295 mg/dL (70-99) White Blood Count 7.6 x10^3/uL (4.0-11.0) 6.0 x10^3/uL (4.0-11.0) Red Blood Count 4.91 x10^6/uL (4.30-5.70) 4.51 x10^6/uL (4.30-5.70) Hemoglobin 15.4 g/dL (13.0-17.5) 14.2 g/dL (13.0-17.5) Hematocrit 45.0 % (39.0-53.0) 41.6 % (39.0-53.0) Mean Corpuscular Volume 92 fL (79-100) 92 fL (79-100) Mean Corpuscular Hemoglobin 31 pg (25-35) 31 pg (25-35) Mean Corpuscular Hemoglobin Concent 34 g/dL (31-37) 34 g/dL (31-37) Red Cell Distribution Width 13.0 % (11.5-14.5) 13.1 % (11.5-14.5) Platelet Count 138 x10^3/uL (140-400) 123 x10^3/uL (140-400) Neutrophils (%) (Auto) 80 % (31-73) 61 % (31-73) Lymphocytes (%) (Auto) 10 % (24-48) 27 % (24-48) Monocytes (%) (Auto) 9 % (0-9) 10 % (0-9) Eosinophils (%) (Auto) 0 % (0-3) 0 % (0-3) Basophils (%) (Auto) 1 % (0-3) 1 % (0-3) Neutrophils # (Auto) 6.1 x10^3/uL (1.8-7.7) 3.7 x10^3/uL (1.8-7.7) Lymphocytes # (Auto) 0.8 x10^3/uL (1.0-4.8) 1.6 x10^3/uL (1.0-4.8) Monocytes # (Auto) 0.7 x10^3/uL (0.0-1.1) 0.6 x10^3/uL (0.0-1.1) Eosinophils # (Auto) 0.0 x10^3/uL (0.0-0.7) 0.0 x10^3/uL (0.0-0.7) Basophils # (Auto) 0.0 x10^3/uL (0.0-0.2) 0.0 x10^3/uL (0.0-0.2) D-Dimer (Amelia) 0.68 ug/mlFEU (0.00-0.50) Sodium Level 130 mmol/L (136-145) 136 mmol/L (136-145) Potassium Level 4.3 mmol/L (3.5-5.1) 3.9 mmol/L (3.5-5.1) Chloride Level 94 mmol/L (98-107) 101 mmol/L (98-107) Carbon Dioxide Level 26 mmol/L (21-32) 26 mmol/L (21-32) Anion Gap 10 (6-14) 9 (6-14) Blood Urea Nitrogen 17 mg/dL (8-26) 20 mg/dL (8-26) Creatinine 1.1 mg/dL (0.7-1.3) 1.1 mg/dL (0.7-1.3) Estimated GFR (Cockcroft-Gault) 65.6 65.6 BUN/Creatinine Ratio 15 (6-20) 18 (6-20) Glucose Level 305 mg/dL (70-99) 214 mg/dL (70-99) Calcium Level 8.5 mg/dL (8.5-10.1) 8.1 mg/dL (8.5-10.1) Magnesium Level 1.7 mg/dL (1.8-2.4) Total Bilirubin 0.6 mg/dL (0.2-1.0) 0.4 mg/dL (0.2-1.0) Aspartate Amino Transf (AST/SGOT) 34 U/L (15-37) 29 U/L (15-37) Alanine Aminotransferase (ALT/SGPT) 46 U/L (16-63) 43 U/L (16-63) Alkaline Phosphatase 120 U/L (46-116) 107 U/L (46-116) Troponin I Quantitative 0.085 ng/mL (0.000-0.055) 0.099 ng/mL (0.000-0.055) 0.071 ng/mL (0.000-0.055) Total Protein 7.5 g/dL (6.4-8.2) 6.1 g/dL (6.4-8.2) Albumin 3.4 g/dL (3.4-5.0) 3.0 g/dL (3.4-5.0) Albumin/Globulin Ratio 0.8 (1.0-1.7) 1.0 (1.0-1.7) Test 10/10/19 09:56 10/10/19 10:15 10/10/19 11:31 10/10/19 17:20 Glucose (Fingerstick) 244 mg/dL (70-99) 301 mg/dL (70-99) Heparin Anti-Xa Act, Unfractionated 0.26 IU/mL (0.30-0.70) 0.40 IU/mL (0.30-0.70) Test 10/10/19 17:29 Glucose (Fingerstick) 226 mg/dL (70-99) Laboratory Tests Test 10/09/19 19:56 10/09/19 20:05 10/10/19 01:15 10/10/19 04:25 Glucose (Fingerstick) 295 mg/dL (70-99) White Blood Count 7.6 x10^3/uL (4.0-11.0) 6.0 x10^3/uL (4.0-11.0) Red Blood Count 4.91 x10^6/uL (4.30-5.70) 4.51 x10^6/uL (4.30-5.70) Hemoglobin 15.4 g/dL (13.0-17.5) 14.2 g/dL (13.0-17.5) Hematocrit 45.0 % (39.0-53.0) 41.6 % (39.0-53.0) Mean Corpuscular Volume 92 fL (79-100) 92 fL (79-100) Mean Corpuscular Hemoglobin 31 pg (25-35) 31 pg (25-35) Mean Corpuscular Hemoglobin Concent 34 g/dL (31-37) 34 g/dL (31-37) Red Cell Distribution Width 13.0 % (11.5-14.5) 13.1 % (11.5-14.5) Platelet Count 138 x10^3/uL (140-400) 123 x10^3/uL (140-400) Neutrophils (%) (Auto) 80 % (31-73) 61 % (31-73) Lymphocytes (%) (Auto) 10 % (24-48) 27 % (24-48) Monocytes (%) (Auto) 9 % (0-9) 10 % (0-9) Eosinophils (%) (Auto) 0 % (0-3) 0 % (0-3) Basophils (%) (Auto) 1 % (0-3) 1 % (0-3) Neutrophils # (Auto) 6.1 x10^3/uL (1.8-7.7) 3.7 x10^3/uL (1.8-7.7) Lymphocytes # (Auto) 0.8 x10^3/uL (1.0-4.8) 1.6 x10^3/uL (1.0-4.8) Monocytes # (Auto) 0.7 x10^3/uL (0.0-1.1) 0.6 x10^3/uL (0.0-1.1) Eosinophils # (Auto) 0.0 x10^3/uL (0.0-0.7) 0.0 x10^3/uL (0.0-0.7) Basophils # (Auto) 0.0 x10^3/uL (0.0-0.2) 0.0 x10^3/uL (0.0-0.2) D-Dimer (Amelia) 0.68 ug/mlFEU (0.00-0.50) Sodium Level 130 mmol/L (136-145) 136 mmol/L (136-145) Potassium Level 4.3 mmol/L (3.5-5.1) 3.9 mmol/L (3.5-5.1) Chloride Level 94 mmol/L (98-107) 101 mmol/L (98-107) Carbon Dioxide Level 26 mmol/L (21-32) 26 mmol/L (21-32) Anion Gap 10 (6-14) 9 (6-14) Blood Urea Nitrogen 17 mg/dL (8-26) 20 mg/dL (8-26) Creatinine 1.1 mg/dL (0.7-1.3) 1.1 mg/dL (0.7-1.3) Estimated GFR (Cockcroft-Gault) 65.6 65.6 BUN/Creatinine Ratio 15 (6-20) 18 (6-20) Glucose Level 305 mg/dL (70-99) 214 mg/dL (70-99) Calcium Level 8.5 mg/dL (8.5-10.1) 8.1 mg/dL (8.5-10.1) Magnesium Level 1.7 mg/dL (1.8-2.4) Total Bilirubin 0.6 mg/dL (0.2-1.0) 0.4 mg/dL (0.2-1.0) Aspartate Amino Transf (AST/SGOT) 34 U/L (15-37) 29 U/L (15-37) Alanine Aminotransferase (ALT/SGPT) 46 U/L (16-63) 43 U/L (16-63) Alkaline Phosphatase 120 U/L (46-116) 107 U/L (46-116) Troponin I Quantitative 0.085 ng/mL (0.000-0.055) 0.099 ng/mL (0.000-0.055) 0.071 ng/mL (0.000-0.055) Total Protein 7.5 g/dL (6.4-8.2) 6.1 g/dL (6.4-8.2) Albumin 3.4 g/dL (3.4-5.0) 3.0 g/dL (3.4-5.0) Albumin/Globulin Ratio 0.8 (1.0-1.7) 1.0 (1.0-1.7) Test 10/10/19 09:56 10/10/19 10:15 10/10/19 11:31 10/10/19 17:20 Glucose (Fingerstick) 244 mg/dL (70-99) 301 mg/dL (70-99) Heparin Anti-Xa Act, Unfractionated 0.26 IU/mL (0.30-0.70) 0.40 IU/mL (0.30-0.70) Test 10/10/19 17:29 Glucose (Fingerstick) 226 mg/dL (70-99) Images Images Imaging as above. Assessment/Plan Assessment/Plan 1. Syncope. Isolated episode of syncope as noted above. Rhythm has remained stable. Mildly decreased magnesium 1.7 being replaced. Minimally elevated troponin at 0.071. Will continue on monitoring. We'll recheck echocardiogram per LV function. 2. Minimally elevated troponin at 0.071. History of coronary disease with an MPI testing last year showing a large infarct but no significant reversible ischemia. Ejection fraction was decreased at 46%. Continue rule out protocol. Echocardiogram as above. 3. Hypertension. Patient's blood pressure is under fair control. Will monitor and adjust medications as needed. 4. Diabetes mellitus. Initial glucose of 214. Being followed by the primary service. 5. Hypomagnesemia. Magnesium mildly decreased at 1.7. Being replaced and monitored. Thank you for allowing us to participate in the care of your patient. MARE HERMOSILLO MD Oct 10, 2019 18:06
[2019-10-10 19:20] VITALS: BP 163/80
--- NOTE | 2019-10-10 22:53 | NUR ---
Pt arrived to unit per at 1930, pt oriented to surroundings poc explained family at bedside assessment completed vs obtained will resume care and continue to monitor pt. Call light in reach.
[2019-10-10 23:00] VITALS: BP 174/96
[2019-10-10 23:07] LABS: HEMOGLOBIN A1C 10.8 % (4.8-5.6)
--- NOTE | 2019-10-10 23:37 | NUR ---
Call placed to Dr. Hernandez re: pt bp 174/96 with no prn meds ordered
[2019-10-11] VITALS (8 sets, daily range): BP systolic 118–180; BP diastolic 71–90
[2019-10-11 05:36] LABS: CALCIUM 8.5 mg/dL (8.5-10.1); GFR 73.2; MAGNESIUM 1.9 mg/dL (1.8-2.4); POTASSIUM 3.7 mmol/L (3.5-5.1)
[2019-10-11 05:41] LABS: CHOLESTEROL/HDL RATIO 6.3
--- NOTE | 2019-10-11 09:30 | EKG ---
[facility] [address] [place] [address] Test Date: 2019-10-11 Test Time: 09:24:13 Pat Name: JETT ALVARES Department: Room: ED HOLD 16 Gender: M Vending Machine Repairer: EKATERINA : 1945 Requested By: MARE HERMOSILLO Order Number: [id number] Reading MD: Measurements Intervals [place] Rate: 73 P: 41 [place]: 176 QRS: 15 QRSD: 106 T: 192 QT: 396 QTc: 440 Interpretive Statements SINUS RHYTHM QRS(T) CONTOUR ABNORMALITY CONSISTENT WITH INFERIOR INFARCT AGE UNDETERMINED ST & T ABNORMALITY, CONSIDER ANTERIOR ISCHEMIA OR LEFT VENTRICULAR STRAIN T ABNORMALITY IN LATERAL LEADS ABNORMAL ECG RI6.02 No previous ECG available for comparison
--- NOTE | 2019-10-11 10:00 | NUR ---
SS following for discharge planning. SS reviewed pt chart. Pt is from home with spouse and is currently on room air. SS will continue to follow for discharge planning.
--- NOTE | 2019-10-11 11:06 | PDOC ---
CARDIO Progress Notes Date and Time Date of Service 10/11/19 Time of Evaluation 1050 Subjective Subjective: No Chest Pain, No shortness of breath, No Palpitations Vitals Vitals Vital Signs Date Time Temp Pulse Resp B/P (MAP) Pulse Ox O2 Delivery O2 Flow Rate FiO2 10/11/19 10:40 94 118/71 (87) 10/11/19 10:30 97.4 18 98 Room Air 97.4 Weight Weight [ ] Input and Output Intake and Output Intake and Output 10/11/19 07:00 Intake Total 0 ml Output Total 1200 ml Balance -1200 ml Intake Oral 0 ml Output Urine Total 1200 ml # Voids 4 # Bowel Movements 1 Laboratory Labs Laboratory Tests Test 10/10/19 11:31 10/10/19 17:20 10/10/19 17:29 10/10/19 21:31 Glucose (Fingerstick) 301 mg/dL (70-99) 226 mg/dL (70-99) 290 mg/dL (70-99) Heparin Anti-Xa Act, Unfractionated 0.40 IU/mL (0.30-0.70) Test 10/10/19 23:05 10/11/19 05:00 10/11/19 07:14 Heparin Anti-Xa Act, Unfractionated 0.40 IU/mL (0.30-0.70) 0.40 IU/mL (0.30-0.70) Sodium Level 137 mmol/L (136-145) Potassium Level 3.7 mmol/L (3.5-5.1) Chloride Level 101 mmol/L (98-107) Carbon Dioxide Level 27 mmol/L (21-32) Anion Gap 9 (6-14) Blood Urea Nitrogen 18 mg/dL (8-26) Creatinine 1.0 mg/dL (0.7-1.3) Estimated GFR (Cockcroft-Gault) 73.2 Glucose Level 224 mg/dL (70-99) Calcium Level 8.5 mg/dL (8.5-10.1) Magnesium Level 1.9 mg/dL (1.8-2.4) Troponin I Quantitative 0.056 ng/mL (0.000-0.055) Triglycerides Level 179 mg/dL (0-150) Cholesterol Level 158 mg/dL (0-200) LDL Cholesterol, Calculated 97 mg/dL (0-100) VLDL Cholesterol, Calculated 36 mg/dL (0-40) Non-HDL Cholesterol Calculated 133 mg/dL (0-129) HDL Cholesterol 25 mg/dL (40-60) Cholesterol/HDL Ratio 6.3 Thyroid Stimulating Hormone (TSH) 1.348 uIU/mL (0.358-3.74) Glucose (Fingerstick) 221 mg/dL (70-99) Physical Exam HEENT: Neck Supple W Full Motion Chest: Symmetric LUNGS: Clear to Auscultation Heart: S1S2, RRR Abdomen: Soft N/T Neurology: alert, oriented, follow commands Assessment Assessment 1. Syncope. No acute events on tele. Most probably vasovagal. Was voiding when syncope occurred 2. Mildly elevated troponin; peak 0.099. CP free. MPI testing last year showing a large infarct but no significant reversible ischemia. 3. CAD; s/p PCI/multiple stents. About 8-9 years ago in [place] 4. Chronic systolic CHF with ICM; Echo 09/2018 with LVEF 40-45%. appears compensated. Repeat echo shows further LV depression with an EF of 25% 5. Hypertension 6. Orthostatic hypotension; SBP dropped from 155/75 to 118/71 upon standing 7. Diabetes, IIl; uncontrolled. As per PCP 8. Hypomagnesemia; replaced 9. Medical noncompliance Recommendations Discontinue heparin gtt 500cc fluid bolus Add ASA, statin Compression stocking Given findings of significant cardiomyopathy, patient will need further ischemic evaluation with LHC Start low-dose lisinopril and metoprolol as BP allows. Also, AICD for prevention of SCD MASON MEDELLIN APRN Oct 11, 2019 11:06
--- NOTE | 2019-10-11 11:27 | PDOC ---
[facility] PROGRESS NOTE Chief Complaint Chief Complaint syncope, possible nstemi type 2, hyponatremia History of Present Illness History of Present Illness 10/11/2019 pt seen and examined chart reviewed discussed pt with RN discussed pt care with family in the room pt appears well and states that is feeling better currnetly on Hep drip HTN is uncontrolled currently answered questions of pt and family regarding pt care Vitals/I&O Vitals/I&O: Vital Signs Date Time Temp Pulse Resp B/P (MAP) Pulse Ox O2 Delivery O2 Flow Rate FiO2 10/11/19 10:40 94 118/71 (87) 10/11/19 10:30 97.4 18 98 Room Air 97.4 I & O 0 10/10/19 10/10/19 10/11/19 15:00 23:00 07:00 Intake Total 0 ml Output Total 600 ml 600 ml Balance -600 ml -600 ml 0 ml Physical Exam General: No acute distress Heart: Regular rate Abdomen: Normal bowel sounds Labs Labs: Laboratory Tests Test 10/10/19 11:31 10/10/19 17:20 10/10/19 17:29 10/10/19 21:31 Glucose (Fingerstick) 301 mg/dL (70-99) 226 mg/dL (70-99) 290 mg/dL (70-99) Heparin Anti-Xa Act, Unfractionated 0.40 IU/mL (0.30-0.70) Test 10/10/19 23:05 10/11/19 05:00 10/11/19 07:14 Heparin Anti-Xa Act, Unfractionated 0.40 IU/mL (0.30-0.70) 0.40 IU/mL (0.30-0.70) Sodium Level 137 mmol/L (136-145) Potassium Level 3.7 mmol/L (3.5-5.1) Chloride Level 101 mmol/L (98-107) Carbon Dioxide Level 27 mmol/L (21-32) Anion Gap 9 (6-14) Blood Urea Nitrogen 18 mg/dL (8-26) Creatinine 1.0 mg/dL (0.7-1.3) Estimated GFR (Cockcroft-Gault) 73.2 Glucose Level 224 mg/dL (70-99) Calcium Level 8.5 mg/dL (8.5-10.1) Magnesium Level 1.9 mg/dL (1.8-2.4) Troponin I Quantitative 0.056 ng/mL (0.000-0.055) Triglycerides Level 179 mg/dL (0-150) Cholesterol Level 158 mg/dL (0-200) LDL Cholesterol, Calculated 97 mg/dL (0-100) VLDL Cholesterol, Calculated 36 mg/dL (0-40) Non-HDL Cholesterol Calculated 133 mg/dL (0-129) HDL Cholesterol 25 mg/dL (40-60) Cholesterol/HDL Ratio 6.3 Thyroid Stimulating Hormone (TSH) 1.348 uIU/mL (0.358-3.74) Glucose (Fingerstick) 221 mg/dL (70-99) Review of Systems Review of Systems: GI: no abdominal pain , no NV neuro: denies SIMENTAL or changes in vision Assessment and Plan Assessmemt and Plan syncope, possible nstemi type 2, hyponatremia Plan cardiac monitoring consult cardio trend cardiac enzymes trend serial ECG being norvast PT/OT dvt prophylaxis continue Hep drip Comment Review of Relevant I have reviewed the following items nicole (where applicable) has been applied. Medications: Current Medications Medications (Trade) Dose Ordered Sig/Tasneem Route PRN Reason Start Time Stop Time Status Last Admin Dose Admin Insulin Human Lispro (HumaLOG) 0-7 UNITS TIDWMEALS SQ 10/10/19 12:00 10/10/19 17:36 LUIS MIGUEL AVILA III DO Oct 11, 2019 11:27
[2019-10-11] MEDS ORDERED: IV NORMAL SALINE 500ML BAG 500 ML IV ONE (11:30)
[2019-10-11] MEDS: INSULIN LISPRO 300 UNITS/3 ML VIAL. SQ SCH ×4 (12:00→20:36)
[2019-10-11] MEDS ORDERED: amLODIPine BESYLATE 10 MG TABLET PO SCH (12:00)
[2019-10-11] MEDS: NYSTATIN TOPICAL POWDER 15GM BOTTLE. TP SCH ×2 (12:27→21:00)
[2019-10-11] MEDS: ASPIRIN ENTERIC COATED 81 MG TABLET.DR. PO SCH (12:28)
--- NOTE | 2019-10-11 12:34 | CARD ---
MR#: [id number] Date of Study: 10/11/2019 Ordering Physician: MARE HERMOSILLO, Referring Physician: MARE HERMOSILLO, Tech: Reece Strickland [facility] APPROVED REPORT EXAM: Two-dimensional and M-mode echocardiogram with Doppler and color Doppler. Other Information Quality : GoodHR: 61bpm INDICATION CAD NSTEMI 2D DIMENSIONS Left Atrium(2D)4.3 (1.6-4.0cm)IVSd1.3 (0.7-1.1cm) Aortic Root(2D)3.2 (2.0-3.7cm)LVDd5.2 (3.9-5.9cm) PWd1.3 (0.7-1.1cm)LVDs4.2 (2.5-4.0cm) FS (%) 19.0 %SV49.4 ml LVEF(%)38.9 (>50%) Aortic Valve AoV Peak Konrad.129.6cm/Cory Peak GR.6.7mmHg LVOT Peak Konrad.73.9cm/Disha P 1/2 [id number] Mitral Valve MV E Yfqpsnjv38.3cm/sMV DECEL [id number] MV A Huamwgwo879.4cm/sE/A Ratio0.6 MV A Nckjsvdl710to Pulmonary Valve PV Peak Edrcmdhp05.2cm/s Tricuspid Valve TR P. Mchxuymy177gp/sRAP RODRCZCX1oxUf TR Peak Gr.99hcFuTAWT85nnFd Pulmonary Vein S1 Qczkaowq12.0cm/sD2 Djbcmiuv87.9cm/s PVa gcqinsby712eucm LEFT VENTRICLE The left ventricle is normal size. There is mild concentric left ventricular hypertrophy. The systoli c function is severely impaired. EF 25% The septal motion is suggestive of conduction defect. The LV appears dysynchronous. Moderate to severe global hypokinesis. Transmitral Doppler flow pattern is Gra de I-abnormal relaxation pattern. RIGHT VENTRICLE The right ventricle is normal size. There is normal right ventricular wall thickness. The right ventr icular systolic function is normal. ATRIA The left atrium is moderately dilated. The right atrium size is normal. The interatrial septum is int act with no evidence for an atrial septal defect or patent foramen ovale as noted on 2-D or Doppler i maging. AORTIC VALVE The aortic valve is normal in structure and function. Doppler and Color Flow revealed mild aortic reg urgitation. There is no aortic valvular stenosis. There is no aortic valvular vegetation. MITRAL VALVE The mitral valve is normal in structure and function. There is no evidence of mitral valve prolapse. There is no mitral valve stenosis. Doppler and Color-flow revealed mild mitral regurgitation. TRICUSPID VALVE The tricuspid valve is normal in structure and function. Doppler and Color Flow revealed mild tricusp id regurgitation with PAP of 25 mmHg. There is no tricuspid valve prolapse or vegetation. There is no tricuspid valve stenosis. PULMONIC VALVE There is trace pulmonic valvular regurgitation. There is no pulmonic valvular stenosis. GREAT VESSELS The aortic root is normal in size. The ascending aorta is normal in size. The pulmonary artery is nor mal. The IVC is normal in size and collapses >50% with inspiration. PERICARDIAL EFFUSION There is no pleural effusion. The pericardium appears normal. Critical Notification Critical Value: No <Conclusion> The systolic function is severely impaired. EF 25% The septal motion is suggestive of conduction defect. The LV appears dysynchronous. Moderate to sever e global hypokinesis. Doppler and Color Flow revealed mild aortic regurgitation. Doppler and Color Flow revealed mild tricuspid regurgitation with PAP of 25 mmHg. Signed by : Domingo Flores, Electronically Approved : 10/11/2019 12:34:15
[2019-10-11] MEDS ORDERED: DEXTROSE 50% 25 GM / 50ML DISP.SYRIN. IV PRN (19:00)
--- NOTE | 2019-10-11 19:50 | NUR ---
Pt in bed assessment completed vs obtained family at bedside poc explained will resume care and continue to monitor pt.
[2019-10-11] MEDS: METOPROLOL TART IMMED RELEASE 25 MG TABLET. PO SCH (20:30)
[2019-10-11] MEDS: ATORVASTATIN CALCIUM 20 MG TABLET PO SCH (20:30)
[2019-10-12] VITALS (12 sets, daily range): BP systolic 128–177; BP diastolic 67–88
[2019-10-12 06:58] LABS: HEMATOCRIT 39.2 % (39.0-53.0); HEMOGLOBIN 13.6 g/dL (13.0-17.5); RED BLOOD COUNT 4.29 x10^6/uL (4.30-5.70); WHITE BLOOD COUNT 4.6 x10^3/uL (4.0-11.0)
[2019-10-12] MEDS: INSULIN LISPRO 300 UNITS/3 ML VIAL. SQ SCH ×3 (07:30→20:59)
[2019-10-12] MEDS ORDERED: IOHEXOL 300 MG/ML 100ML VIAL. ONE (07:43)
[2019-10-12] MEDS ORDERED: LIDOCAINE 1% Multi-Dose 20 ML VIAL. ONE (07:43)
[2019-10-12] MEDS ORDERED: fentaNYL PF VIAL 100 MCG/2 ML VIAL ONE (08:52)
[2019-10-12] MEDS ORDERED: MIDAZOLAM HCL/PF 2 MG/2 ML VIAL. ONE (08:52)
[2019-10-12] MEDS: NYSTATIN TOPICAL POWDER 15GM BOTTLE. TP SCH ×2 (09:00→20:54)
--- NOTE | 2019-10-12 09:03 | PDOC ---
MODERATE SEDATION ASSESSMENT RISKS/ALTERNATIVES Risks/Alternatives Risks and alternatives of this type of sedation and procedure discussed with: RISK/ALTERNATIVES: Patient H & P ON CHART H & P H & P on chart and reviewed for co-morbid conditions and appropriate labs. H&P ON CHART: Yes STATUS PREG STATUS ASSESSED: N/A MEDS/ALLERGIES REVIEWED Meds/Allergies Reviewed Medications and Allergies including time and route of recently administered narcotics and sedatives. MEDS/ALLERGIES REVIEWED: Yes ASA RATING ASA RATING: II AIRWAY ASSESSMENT Airway Assessment Airway patency, oral function limitations, presence of caps, crowns, dentures, partials, and ability to extend neck assessed. AIRWAY ASSESSMENT: Yes MALLAMPATI SCORE MALLAMPATI SCORE: II PRE-SEDATION ASSESSMENT PRE-SEDATION ASSESSMENT: Yes MARE HERMOSILLO MD Oct 12, 2019 09:03
[2019-10-12] MEDS ORDERED: NITROGLYCERIN OINT 1 GM PACKET. ONE (09:10)
[2019-10-12] MEDS ORDERED: MIDAZOLAM HCL/PF 2 MG/2 ML VIAL. IV ONE (09:30)
[2019-10-12] MEDS ORDERED: LIDOCAINE 1% Multi-Dose 20 ML VIAL. INJ ONE (09:30)
[2019-10-12] MEDS ORDERED: fentaNYL PF VIAL 100 MCG/2 ML VIAL IV ONE (09:30)
[2019-10-12] MEDS ORDERED: IOHEXOL 300 MG/ML 100ML VIAL. IART ONE (09:30)
[2019-10-12] MEDS ORDERED: NITROGLYCERIN OINT 1 GM PACKET. TP ONE (09:30)
[2019-10-12] MEDS ORDERED: HEPARIN for IV BOLUS 10,000 UNIT/10 ML VIAL. ONE (09:31)
[2019-10-12] MEDS ORDERED: HEPARIN for IV BOLUS 10,000 UNIT/10 ML VIAL. IV ONE (09:45)
[2019-10-12] MEDS ORDERED: IV NORMAL SALINE 1000ML BAG 1,000 ML IV SCH (10:06)
[2019-10-12] MEDS ORDERED: 0.9 % SODIUM CHLORIDE 10 ML DISP.SYRIN. IV PRN (10:15)
[2019-10-12] MEDS ORDERED: NITROGLYCERIN SUBLINGUAL 0.4 MG BOTTLE OF 25. SL PRN (10:15)
--- NOTE | 2019-10-12 12:14 | PDOC ---
[facility] PROGRESS NOTE Chief Complaint Chief Complaint Syncope Possible NSTEMI CAD (Coronary Artery Disease) s/p 2 stents Chronic Systolic Heart Failure with ICM Hypertension Orthostatic Hypotension Diabetes Mellitus Type 2 Hypomagnesemia Hyponatremia History of Present Illness History of Present Illness 10/11/2019 pt seen and examined chart reviewed discussed pt with RN discussed pt care with family in the room pt appears well and states that is feeling better currnetly on Hep drip HTN is uncontrolled currently answered questions of pt and family regarding pt care 10/12/2019 -Pt seen and examined alongside multiple members of his family. -Chart reviewed and care discussed with nursing staff. -Pt resting comfortably on bed. He just had gotten back from his heart cath. Appears to be doing well. No new complaints at this time. Vitals/I&O Vitals/I&O: Vital Signs Date Time Temp Pulse Resp B/P (MAP) Pulse Ox O2 Delivery O2 Flow Rate FiO2 10/12/19 11:15 62 147/83 (104) 10/12/19 11:00 98.0 20 95 Room Air 98.0 10/12/19 10:01 2.0 I & O 10/11/19 10/11/19 10/12/19 15:00 23:00 07:00 Intake Total 240 ml Balance 240 ml Physical Exam General: Alert, Oriented X3, No acute distress Heart: Regular rate, No murmurs Lungs: Clear Abdomen: Normal bowel sounds Extremities: No clubbing, No cyanosis Labs Labs: Laboratory Tests Test 10/11/19 12:39 10/11/19 17:57 10/11/19 20:26 10/12/19 06:30 Glucose (Fingerstick) 217 mg/dL (70-99) 237 mg/dL (70-99) 234 mg/dL (70-99) White Blood Count 4.6 x10^3/uL (4.0-11.0) Red Blood Count 4.29 x10^6/uL (4.30-5.70) Hemoglobin 13.6 g/dL (13.0-17.5) Hematocrit 39.2 % (39.0-53.0) Mean Corpuscular Volume 91 fL (79-100) Mean Corpuscular Hemoglobin 32 pg (25-35) Mean Corpuscular Hemoglobin Concent 35 g/dL (31-37) Red Cell Distribution Width 13.0 % (11.5-14.5) Platelet Count 131 x10^3/uL (140-400) Magnesium Level 1.8 mg/dL (1.8-2.4) Test 10/12/19 07:27 Glucose (Fingerstick) 157 mg/dL (70-99) Review of Systems Review of Systems: Denies Chest pain or SOA Assessment and Plan Assessmemt and Plan Problems Medical Problems: (1) Hypomagnesemia Status: Acute (2) NSTEMI (non-ST elevated myocardial infarction) Status: Acute (3) Syncope and collapse Status: Acute Syncope Possible NSTEMI CAD (Coronary Artery Disease) s/p 2 stents Chronic Systolic Heart Failure with ICM Hypertension Orthostatic Hypotension Diabetes Mellitus Type 2 Hypomagnesemia Hyponatremia Plan -cardiac monitoring -Cardiology following -Heart cath performed this morning -Trend cardiac enzymes/ECGs -Continue home medications -PT/OT -DVT ppx -Full code -Possible discharge home if ok with cardiology. Comment Review of Relevant I have reviewed the following items nicole (where applicable) has been applied. Medications: Current Medications Medications (Trade) Dose Ordered Sig/Tasneem Route PRN Reason Start Time Stop Time Status Last Admin Dose Admin Atorvastatin Calcium (Lipitor) 20 mg QHS PO 10/11/19 21:00 10/11/19 20:30 Metoprolol Tartrate (Lopressor) 12.5 mg BID PO 10/11/19 21:00 10/11/19 20:30 Insulin Human Lispro (HumaLOG) 0-9 UNITS TIDACHC SQ 10/11/19 21:00 10/11/19 20:36 Heparin Sodium/ Sodium Chloride (HEPARIN for ARTERIAL LINE FLUSH) 1,000 unit 1X ONCE IART 10/12/19 09:30 10/12/19 09:31 DC 10/12/19 09:50 Heparin Sodium/ Sodium Chloride (HEPARIN for ARTERIAL LINE FLUSH) 1,000 unit 1X ONCE IART 10/12/19 09:30 10/12/19 09:31 DC 10/12/19 09:50 Midazolam HCl (Versed) 2 mg 1X ONCE IV 10/12/19 09:30 10/12/19 09:31 DC 10/12/19 09:51 Fentanyl Citrate (Fentanyl 2ml Vial) 25 mcg 1X ONCE IV 10/12/19 09:30 10/12/19 09:31 DC 10/12/19 09:52 Iohexol (Omnipaque 300 Mg/ml) 100 ml 1X ONCE IART 10/12/19 09:30 10/12/19 09:31 DC 10/12/19 09:50 Lidocaine HCl (Lidocaine 1% 20ml Vial) 20 ml 1X ONCE INJ 10/12/19 09:30 10/12/19 09:31 DC 10/12/19 09:51 Nitroglycerin (Nitro-Bid Oint) 2 inch 1X ONCE TP 10/12/19 09:30 10/12/19 09:31 DC 10/12/19 09:50 Heparin Sodium (Porcine) (Heparin Sodium) 500 unit 1X ONCE IV 10/12/19 09:45 10/12/19 09:46 DC 10/12/19 09:53 Sodium Chloride 1,000 ml @ 75 mls/hr [id number] IV 10/12/19 10:06 10/12/19 14:05 10/12/19 11:51 LUIS MIGUEL AVILA III DO Oct 12, 2019 12:14
[2019-10-12] MEDS: LISINOPRIL 5 MG TABLET. PO SCH (12:38)
[2019-10-12] MEDS: METOPROLOL TART IMMED RELEASE 25 MG TABLET. PO SCH ×2 (12:38→20:54)
[2019-10-12] MEDS: ASPIRIN ENTERIC COATED 81 MG TABLET.DR. PO SCH (12:39)
[2019-10-12] MEDS: ANTI-COAG MONITOR BY PHARMACY. MC PRN (15:53)
--- NOTE | 2019-10-12 19:50 | NUR ---
Pt in bed assessment completed vss poc explained pt denied pain, family at bedside brit resume care and continue to monitor pt.
[2019-10-12] MEDS: ATORVASTATIN CALCIUM 20 MG TABLET PO SCH (20:53)
[2019-10-13 02:54] VITALS: BP 176/80
[2019-10-13 04:45] LABS: BASO % 1 % (0-3); EOS # 0.2 x10^3/uL (0.0-0.7); EOS % 5 % (0-3); HEMATOCRIT 38.4 % (39.0-53.0); HEMOGLOBIN 13.2 g/dL (13.0-17.5); LYMPH # 1.4 x10^3/uL (1.0-4.8); LYMPH % 33 % (24-48); MEAN CORPUSCULAR HEMOGLOBIN 32 pg (25-35); MEAN CORPUSCULAR HGB CONC 35 g/dL (31-37); MEAN CORPUSCULAR VOLUME 92 fL (79-100); MONO # 0.4 x10^3/uL (0.0-1.1); MONO % 10 % (0-9); NEUT # 2.2 x10^3/uL (1.8-7.7); NEUT % 51 % (31-73); PLATELET COUNT 127 x10^3/uL (140-400); RED BLOOD COUNT 4.19 x10^6/uL (4.30-5.70); RED CELL DISTRIBUTION WIDTH 12.5 % (11.5-14.5); WHITE BLOOD COUNT 4.3 x10^3/uL (4.0-11.0)
[2019-10-13 04:58] LABS: CALCIUM 8.1 mg/dL (8.5-10.1); CREATININE 0.9 mg/dL (0.7-1.3); GFR 82.7; POTASSIUM 3.6 mmol/L (3.5-5.1)
[2019-10-13 07:00] VITALS: BP 156/78
[2019-10-13] MEDS: ASPIRIN ENTERIC COATED 81 MG TABLET.DR. PO SCH (08:54)
[2019-10-13] MEDS: LISINOPRIL 5 MG TABLET. PO SCH (08:54)
[2019-10-13] MEDS: METOPROLOL TART IMMED RELEASE 25 MG TABLET. PO SCH (08:55)
[2019-10-13] MEDS: NYSTATIN TOPICAL POWDER 15GM BOTTLE. TP SCH (08:55)
[2019-10-13] MEDS: INSULIN LISPRO 300 UNITS/3 ML VIAL. SQ SCH ×2 (09:01→13:38)
[2019-10-13 11:08] VITALS: BP 170/77
[2019-10-13] MEDS ORDERED: ATOR20TA PO (11:25)
[2019-10-13] MEDS ORDERED: LISI10TA2 PO (11:25)
[2019-10-13] MEDS ORDERED: GLYB5TAB3 PO (11:25)
[2019-10-13] MEDS ORDERED: METO-239 PO (11:26)
[2019-10-13] MEDS ORDERED: ASPI-630 PO (11:27)
--- NOTE | 2019-10-13 11:59 | PDOC ---
[facility] PROGRESS NOTE Chief Complaint Chief Complaint Syncope Possible NSTEMI CAD (Coronary Artery Disease) s/p 2 stents Chronic Systolic Heart Failure with ICM Hypertension Orthostatic Hypotension Diabetes Mellitus Type 2 Hypomagnesemia Hyponatremia History of Present Illness History of Present Illness 10/11/2019 pt seen and examined chart reviewed discussed pt with RN discussed pt care with family in the room pt appears well and states that is feeling better currnetly on Hep drip HTN is uncontrolled currently answered questions of pt and family regarding pt care 10/12/2019 -Pt seen and examined alongside multiple members of his family. -Chart reviewed and care discussed with nursing staff. -Pt resting comfortably on bed. He just had gotten back from his heart cath. Appears to be doing well. No new complaints at this time. 10/13/2019 Pt seen and examined with family present in room Pt has had high blood sugars overnight, will address with change in medications Discussed home meds with RN Chart reviewed Pt resting comfortably in bed. No complaints at time Discussed life vest with pt. Pt understands purpose of life vest Vitals/I&O Vitals/I&O: Vital Signs Date Time Temp Pulse Resp B/P (MAP) Pulse Ox O2 Delivery O2 Flow Rate FiO2 10/13/19 11:08 98.1 61 18 170/77 (108) 97 Room Air 98.1 10/13/19 07:40 2.0 I & O 10/12/19 10/12/19 10/13/19 15:00 23:00 07:00 Intake Total 180 ml 100 ml 520 ml Balance 180 ml 100 ml 520 ml Physical Exam General: Alert, Oriented X3, No acute distress Heart: Regular rate, No murmurs Lungs: Clear Abdomen: Normal bowel sounds Extremities: No clubbing, No cyanosis Labs Labs: Laboratory Tests Test 10/12/19 12:21 10/12/19 17:03 10/12/19 20:46 10/13/19 03:29 Glucose (Fingerstick) 195 mg/dL (70-99) 275 mg/dL (70-99) 220 mg/dL (70-99) White Blood Count 4.3 x10^3/uL (4.0-11.0) Red Blood Count 4.19 x10^6/uL (4.30-5.70) Hemoglobin 13.2 g/dL (13.0-17.5) Hematocrit 38.4 % (39.0-53.0) Mean Corpuscular Volume 92 fL (79-100) Mean Corpuscular Hemoglobin 32 pg (25-35) Mean Corpuscular Hemoglobin Concent 35 g/dL (31-37) Red Cell Distribution Width 12.5 % (11.5-14.5) Platelet Count 127 x10^3/uL (140-400) Neutrophils (%) (Auto) 51 % (31-73) Lymphocytes (%) (Auto) 33 % (24-48) Monocytes (%) (Auto) 10 % (0-9) Eosinophils (%) (Auto) 5 % (0-3) Basophils (%) (Auto) 1 % (0-3) Neutrophils # (Auto) 2.2 x10^3/uL (1.8-7.7) Lymphocytes # (Auto) 1.4 x10^3/uL (1.0-4.8) Monocytes # (Auto) 0.4 x10^3/uL (0.0-1.1) Eosinophils # (Auto) 0.2 x10^3/uL (0.0-0.7) Basophils # (Auto) 0.0 x10^3/uL (0.0-0.2) Sodium Level 139 mmol/L (136-145) Potassium Level 3.6 mmol/L (3.5-5.1) Chloride Level 104 mmol/L (98-107) Carbon Dioxide Level 27 mmol/L (21-32) Anion Gap 8 (6-14) Blood Urea Nitrogen 15 mg/dL (8-26) Creatinine 0.9 mg/dL (0.7-1.3) Estimated GFR (Cockcroft-Gault) 82.7 Glucose Level 139 mg/dL (70-99) Calcium Level 8.1 mg/dL (8.5-10.1) Test 10/13/19 07:36 10/13/19 11:28 Glucose (Fingerstick) 161 mg/dL (70-99) 261 mg/dL (70-99) Review of Systems Review of Systems: Neuro: pt denies SIMENTAL and changes in vision GI: pt denies NV and abdominal pain Assessment and Plan Assessmemt and Plan Syncope Possible NSTEMI CAD (Coronary Artery Disease) s/p 2 stents Chronic Systolic Heart Failure with ICM Hypertension Orthostatic Hypotension Diabetes Mellitus Type 2 Hypomagnesemia Hyponatremia Plan: D/C with lifevest pending pt disposition Continue home meds PT/OT DVT prophylaxis Inc linsinopril dose Begin Glyburide 5mg q day for blood sugar control Cardiac monitoring Comment Review of Relevant I have reviewed the following items nicole (where applicable) has been applied. LUIS MIGUEL AVILA III DO Oct 13, 2019 11:59
--- NOTE | 2019-10-13 13:36 | PDOC ---
CARDIO Progress Notes Date and Time Date of Service 10/13/19 Time of Evaluation 1240 Subjective Subjective: No Chest Pain, No shortness of breath, No Palpitations Vitals Vitals Vital Signs Date Time Temp Pulse Resp B/P (MAP) Pulse Ox O2 Delivery O2 Flow Rate FiO2 10/13/19 11:08 98.1 61 18 170/77 (108) 97 Room Air 98.1 10/13/19 07:40 2.0 Weight Weight [ ] Input and Output Intake and Output Intake and Output 10/13/19 07:00 Intake Total 800 ml Balance 800 ml Intake Oral 800 ml # Voids 1 Laboratory Labs Laboratory Tests Test 10/12/19 17:03 10/12/19 20:46 10/13/19 03:29 10/13/19 07:36 Glucose (Fingerstick) 275 mg/dL (70-99) 220 mg/dL (70-99) 161 mg/dL (70-99) White Blood Count 4.3 x10^3/uL (4.0-11.0) Red Blood Count 4.19 x10^6/uL (4.30-5.70) Hemoglobin 13.2 g/dL (13.0-17.5) Hematocrit 38.4 % (39.0-53.0) Mean Corpuscular Volume 92 fL (79-100) Mean Corpuscular Hemoglobin 32 pg (25-35) Mean Corpuscular Hemoglobin Concent 35 g/dL (31-37) Red Cell Distribution Width 12.5 % (11.5-14.5) Platelet Count 127 x10^3/uL (140-400) Neutrophils (%) (Auto) 51 % (31-73) Lymphocytes (%) (Auto) 33 % (24-48) Monocytes (%) (Auto) 10 % (0-9) Eosinophils (%) (Auto) 5 % (0-3) Basophils (%) (Auto) 1 % (0-3) Neutrophils # (Auto) 2.2 x10^3/uL (1.8-7.7) Lymphocytes # (Auto) 1.4 x10^3/uL (1.0-4.8) Monocytes # (Auto) 0.4 x10^3/uL (0.0-1.1) Eosinophils # (Auto) 0.2 x10^3/uL (0.0-0.7) Basophils # (Auto) 0.0 x10^3/uL (0.0-0.2) Sodium Level 139 mmol/L (136-145) Potassium Level 3.6 mmol/L (3.5-5.1) Chloride Level 104 mmol/L (98-107) Carbon Dioxide Level 27 mmol/L (21-32) Anion Gap 8 (6-14) Blood Urea Nitrogen 15 mg/dL (8-26) Creatinine 0.9 mg/dL (0.7-1.3) Estimated GFR (Cockcroft-Gault) 82.7 Glucose Level 139 mg/dL (70-99) Calcium Level 8.1 mg/dL (8.5-10.1) Test 10/13/19 11:28 Glucose (Fingerstick) 261 mg/dL (70-99) Physical Exam HEENT: Neck Supple W Full Motion Chest: Symmetric LUNGS: Clear to Auscultation Heart: S1S2, RRR Abdomen: Soft N/T Extremities: No Edema Neurology: alert, oriented, follow commands Assessment Assessment 1. Syncope. No acute events on tele. Most probably vasovagal. Was voiding when syncope occurred 2. Mildly elevated troponin; peak 0.099. CP free. MPI testing last year showing a large infarct but no significant reversible ischemia. 3. CAD; s/p PCI/multiple stents. About 8-9 years ago in [place]. Cath showed moderate disease, small vessel disease. No intervention 4. Chronic systolic CHF with mixed NICM and ICM; LVEF 25%. LifeVest in place 5. Hypertension; controlled 6. Orthostatic hypotension; improved 7. Diabetes, IIl; uncontrolled. As per PCP 8. Hypomagnesemia; replaced 9. Medical noncompliance Recommendations Secondary prevention; ASA, statin HF optimization therapy with Toprol, lisinopril Consider Entresto on an outpatient basis Follow up in our office as scheduled. MASON MEDELLIN APRN Oct 13, 2019 13:36
--- NOTE | 2019-10-13 13:37 | CARD ---
MR#: [id number] Date of Study: 10/12/2019 Ordering Physician: MARE BURGESS, Referring Physician: MARE BURGESS, Tech: GAMAL KERN RTR APPROVED REPORT Procedures Left heart catheterization Selective coronary angiogram iFR measurement of the right coronary artery The patient is a 74-year-old male with a history of coronary disease, mildly decreased LV systolic fu nction and syncope. Echocardiogram showed significant decreased LV function compared to previous echo es. In this setting with new onset of syncope and a history of coronary disease with newly decreased LV function we recommended cardiac catheterization. Risks and benefits were discussed with the patien t. He agreed to proceed. After informed consent was obtained he was brought to the catheterization lab. The area of the right femoral artery was prepared the usual manner with Betadine, sterile draping and local anesthetic. An 18-gauge needle was used to enter the right femoral artery, a wire placed and a [address] d over the wire. A 6 [place] JL4 diagnostic catheter was used to engage the left coronary artery and s equential injections in various views were obtained. A 6 [place] Levi right diagnostic catheter wa s used to engage the right coronary artery and sequential injections in various views were obtained. Exchanges were over a J-wire. Images were reviewed. No large vessel significant coronary disease was identified although the patient had a mildly questionable area at the bifurcation of the right coron vinita artery. Secondary to this we checked an IFR measurement. A 6 [place] Levi guide catheter was u sed to engage the right coronary system after 500 units of heparin were administered. A IFR wire was placed in the usual manner and measurement was normal at 1.0. The wire was removed. The sheath was re moved. Injection of the sheath showed normal placement. The sheath was then removed and sealed with a n Angio-Seal product. There were no immediate complications. Findings. Hemodynamics. Ao pressure 152/88. Coronaries. Left main. The left main was a normal-size vessel with no lesions. Left anterior descending. The LAD was a moderate size vessel. It had a mid 30-40% lesion. In the very small first diagonal branch with a 90% lesion. Left circumflex. The left circumflex was a smaller nondominant vessel. It a very distal 70% lesion di stal to a previous placed small stent. There also was a very small ramus intermediate branch with an 80% lesion. Right coronary artery. The right coronary was a large dominant vessel. A mid stent was widely patent . At the distal portion of the right coronary artery there was a 40% lesion. However secondary to ang ulation we proceeded with an IFR measurement as noted above which was normal. The RCA also had diffus e small vessel disease distally. <Conclusion> Moderate disease in the left anterior descending. Small distal left circumflex lesion as outlined above. Large dominant right coronary artery with moderate disease. Small vessel disease in the first diagonal, distal left circumflex and distal right coronary arteries . Continuing medical treatment. Signed by : Mare Burgess MD Electronically Approved : 10/12/2019 16:09:52
--- NOTE | 2019-10-13 16:00 | NUR ---
Discharge Note: TY KONG [place] Discharge instructions and discharge home medications reviewed with Patient and a copy given. All questions have been answered and understanding verbalized. The following instructions and handouts were given: new meds, diabetes, cardiac diet, post cat teaching, cholesterol, follow up appointments, all teaching done with patient and daughter. patient speaks some Bengali so daughter translated and they both acknowledged their understanding of teaching. Life vest placed and teaching done by Life vest rep. Discontinued lines and drains: IV removed. no jaspreet present. Patient discharged to home, ambulated to his daughters car with nurse. Left by private vehicle.
--- NOTE | 2019-10-17 00:31 | DS ---
DATE OF DISCHARGE: 10/13/2019 ADMISSION DIAGNOSIS: Syncope. DISCHARGE DIAGNOSES: Resolving syncope, resolving hyponatremia. HOSPITAL COURSE: The patient is a pleasant 74-year-old male who presented with syncopal episode. He was admitted. We consulted Cardiology, did serial enzymes, serial EKGs and cardiac monitoring and we corrected his electrolytes. Over the next few days, we realized he was probably having arrhythmias, but we could not improve it. We decided to send him home with a LifeVest. DISPOSITION: Home with LifeVest. ACTIVITY: As tolerated. DIET: Low sodium. MEDICATIONS: Please see the MRAD. TOTAL TIME: 34 minutes. LUIS MIGUEL AVILA DO DR: SHARITA/tyler JOB#: [id number] / [id number]
== END 2019-10-13 15:00 | disposition home or self-care (01) | DRG 281 ==
LOC: ER 18:19 → ED HOLD 22:05 → 2 NORTH 10-10 19:11
PROVIDERS: ADMIT Internal Medicine; ATTEND Internal Medicine
PROC: 4A023N7 Measurement of Cardiac Sampling and Pressure, Left Heart, Percutaneous Approach (ICD-10-PCS; principal; 2019-10-12)
PROC: B2111ZZ Fluoroscopy of Multiple Coronary Arteries using Low Osmolar Contrast (ICD-10-PCS; 2019-10-12)
PROC: 4A033BC Measurement of Arterial Pressure, Coronary, Percutaneous Approach (ICD-10-PCS; 2019-10-12)
DX: I21.4 Non-ST elevation (NSTEMI) myocardial infarction (principal); E87.1 Hypo-osmolality and hyponatremia; I42.8 Other cardiomyopathies; I50.22 Chronic systolic (congestive) heart failure; E10.51 Type 1 diabetes mellitus with diabetic peripheral angiopathy without gangrene; E10.65 Type 1 diabetes mellitus with hyperglycemia; E78.5 Hyperlipidemia, unspecified; E83.42 Hypomagnesemia; I11.0 Hypertensive heart disease with heart failure; I25.10 Atherosclerotic heart disease of native coronary artery without angina pectoris; I95.1 Orthostatic hypotension; Z79.4 Long term (current) use of insulin; Z82.49 Family history of ischemic heart disease and other diseases of the circulatory system; Z91.14 Patient's other noncompliance with medication regimen; Z91.19 Patient's noncompliance with other medical treatment and regimen; Z95.5 Presence of coronary angioplasty implant and graft; Z79.899 Other long term (current) drug therapy
CPT/HCPCS: 93454; 93571; 96361; 96374; 99291; G0269; 36415; 70450; 71045; 80048; 80053; 80061; 82962; 83036; 83735; 84443; 84484; 85025; 85027; 85379; 85520; 93005; 93306; 94640; 99152; 99153; C1760; C1769; C1887; C1892; J1644; J1815; J2250; J3010; J7030; J7040; J7613; Q9967; C1771; G0378

== ENCOUNTER → 2020-01-23 | Outpatient (CLI) | payer BC ==
[~2020-01-23] MED LIST changes: +ASPI-630 PO; +ATOR20TA PO; +GLYB5TAB3 PO; +LISI10TA2 PO; +METO-239 PO; -REGADENOSON 0.4 MG/5 ML DISP.SYRIN. IV ONE
--- NOTE | 2020-01-23 11:36 | CARD ---
MR#: [id number] Date of Study: 01/23/2020 Ordering Physician: CHARLENE HERNANDEZ, Referring Physician: CHARLENE HERNANDEZ, Tech: Kiara Reese APPROVED REPORT EXAM: Two-dimensional and M-mode echocardiogram with Doppler and color Doppler. Other Information Quality : AverageHR: 58bpm INDICATION Cardiomyopathy RISK FACTORS Hypertension Diabetes 2D DIMENSIONS Left Atrium(2D)4.3 (1.6-4.0cm)IVSd1.2 (0.7-1.1cm) Aortic Root(2D)3.1 (2.0-3.7cm)LVDd4.6 (3.9-5.9cm) LVOT Diameter1.9 (1.8-2.4cm)PWd1.2 (0.7-1.1cm) LVDs3.3 (2.5-4.0cm)FS (%) 27.8 % SV52.7 mlLVEF(%)54.0 (>50%) Aortic Valve AoV Peak Konrad.121.4cm/sAoV VTI25.7cm AO Peak GR.5.9mmHgLVOT Peak Konrad.68.4cm/s LVOT VTI 15.06cmAO Mean GR.3mmHg LUIS (VMAX)1.87rs7BQP (VTI)1.75cm2 AI P 1/2 Nxdy954yk Mitral Valve MV E Okhvrjvz21.0cm/sMV DECEL JTVN249eq MV A Wnrijjjm42.9cm/sMV PID48yb E/A Ratio1.5MVA (PHT)6.02cm2 TDI E/Lateral E'12.0E/Medial E'19.2 Pulmonary Valve PV Peak Nywbjeas44.4cm/sPV Peak Grad.2mmHg Tricuspid Valve TR P. Trgkwort790hk/sRAP ATAGVATO6hjEp TR Peak Gr.76iaEzUONJ54aiMq Pulmonary Vein S1 Ubarknyp28.3cm/sD2 Gmitophf33.2cm/s PVa owtzflxe363hqne LEFT VENTRICLE The left ventricle is normal size. There is mild to moderate concentric left ventricular hypertrophy. The left ventricular systolic function is low normal. The Ejection Fraction is 45-50%. There is mild global hypokinesis of the left ventricle. Transmitral Doppler flow pattern is Grade II-pseudonormal filling dynamics. RIGHT VENTRICLE The right ventricle is normal size. There is normal right ventricular wall thickness. The right ventr icular systolic function is normal. ATRIA The left atrium is borderline dilated. The right atrium size is normal. The interatrial septum is int act with no evidence for an atrial septal defect or patent foramen ovale as noted on 2-D or Doppler i maging. AORTIC VALVE The aortic valve is normal in structure and function. Doppler and Color Flow revealed trace to mild a ortic regurgitation. There is no significant aortic valvular stenosis. MITRAL VALVE The mitral valve is normal in structure and function. There is no evidence of mitral valve prolapse. There is no mitral valve stenosis. Doppler and Color-flow revealed trace mitral regurgitation. TRICUSPID VALVE The tricuspid valve is normal in structure and function. Doppler and Color Flow revealed trace tricus pid regurgitation with an estimated PAP of 24 mmHg. There is no tricuspid valve stenosis. PULMONIC VALVE The pulmonic valve is not well visualized. Doppler and Color Flow revealed no pulmonic valvular regur gitation. There is no pulmonic valvular stenosis. GREAT VESSELS The aortic root is normal in size. The IVC is normal in size and collapses >50% with inspiration. PERICARDIAL EFFUSION There is no evidence of significant pericardial effusion. Critical Notification Critical Value: No <Conclusion> The left ventricular systolic function is low normal. The Ejection Fraction is 45-50%. There is mild global hypokinesis of the left ventricle. Signed by : Domingo Flores, Electronically Approved : 01/23/2020 11:35:48
== END | disposition home or self-care (01) ==
LOC: ECHO 08:35
PROVIDERS: ATTEND Internal Medicine Cardiovascular Disease
DX: I35.1 Nonrheumatic aortic (valve) insufficiency (principal); I25.10 Atherosclerotic heart disease of native coronary artery without angina pectoris
CPT/HCPCS: 93306

== ENCOUNTER 2021-07-08 13:25 | Emergency (ER) | payer BC, OTHER ==
[~2021-07-08] VITALS: Ht 170.2 cm; Wt 73.1 kg
[~2021-07-08 13:25] MED LIST changes: +LISI10TA16 PO; -LISI10TA2 PO
[2021-07-08 14:08] VITALS: BP 179/88
[2021-07-08 14:33] LABS: BILIRUBIN,URINE NEGATIVE (NEG); CLARITY,URINE CLOUDY; COLOR,URINE RED; NITRITE,URINE NEGATIVE (NEG); PROTEIN,URINE 30 mg/dL (NEG-TRACE)
[2021-07-08 14:46] LABS: BACTERIA,URINE 0 /HPF (0-FEW); RBC,URINE TNTC /HPF (0-2)
[2021-07-08 16:50] LABS: BASO # 0.1 x10^3/uL (0.0-0.2); BASO % 1 % (0-3); EOS # 0.3 x10^3/uL (0.0-0.7); EOS % 4 % (0-3); HEMATOCRIT 40.9 % (39.0-53.0); HEMOGLOBIN 13.7 g/dL (13.0-17.5); LYMPH # 2.1 x10^3/uL (1.0-4.8); LYMPH % 27 % (24-48); MEAN CORPUSCULAR HEMOGLOBIN 31 pg (25-35); MEAN CORPUSCULAR HGB CONC 34 g/dL (31-37); MEAN CORPUSCULAR VOLUME 93 fL (79-100); MONO # 0.6 x10^3/uL (0.0-1.1); MONO % 7 % (0-9); NEUT # 4.8 x10^3/uL (1.8-7.7); NEUT % 61 % (31-73); PLATELET COUNT 176 x10^3/uL (140-400); RED BLOOD COUNT 4.39 x10^6/uL (4.30-5.70); RED CELL DISTRIBUTION WIDTH 13.3 % (11.5-14.5); WHITE BLOOD COUNT 7.8 x10^3/uL (4.0-11.0)
--- NOTE | 2021-07-08 16:59 | PHYS DOC ---
Past Medical History Past Medical History: Diabetes-Type I Past Surgical History: Other Additional Past Surgical Histo: CARDIAC STENTS Smoking Status: Never Smoker Alcohol Use: None General Adult EDM: Chief Complaint: BLOOD IN URINE HPI: HPI: 75-year-old male past medical history of CAD with cardiac stents, diabetes, hypertension hyperlipidemia, presents the ED with his biological daughter, (margot ent consents to his/her/their knowledge and involvement in pts' medical care), complains of blood in his urine for the past 3 to 4 days. Does report associated increased urinary frequency. Is not on any anticoagulants. No history of bleeding or blood transfusions. Review of Systems: Review of Systems: Constitutional: Denies fever or chills. [] Eyes: Denies change in visual acuity. [] HENT: Denies nasal congestion or sore throat. [] Respiratory: Denies cough or shortness of breath. [] Cardiovascular: Denies chest pain or edema. [] GI: Denies abdominal pain, nausea, vomiting, bloody stools or diarrhea. [] : Denies dysuria or flank pain Musculoskeletal: Denies back pain or joint pain. [] Integument: Denies rash or diaphoresis Neurologic: Denies headache, focal weakness or sensory changes. [] Endocrine: Denies polyuria or polydipsia. [] Lymphatic: Denies swollen glands. [] Psychiatric: Denies depression or anxiety. [] Heart Score: C/O Chest Pain: No Risk Factors: Risk Factors: DM, Current or recent (<one month) smoker, HTN, HLP, family history of CAD, obesity. Risk Scores: Score 0 - 3: 2.5% MACE over next 6 weeks - Discharge Home Score 4 - 6: 20.3% MACE over next 6 weeks - Admit for Clinical Observation Score 7 - 10: 72.7% MACE over next 6 weeks - Early Invasive Strategies Allergies: Allergies: Allergies Coded Allergies Type Severity Reaction Last Updated Verified No Known Drug Allergies 09/29/18 No Physical Exam: PE: Constitutional: Well developed, well nourished, no acute distress, non-toxic appearance, hypertensive HENT: Normocephalic, atraumatic, Eyes: EOMI, conjunctiva normal, no discharge. Neck: Normal range of motion, supple, Cardiovascular: S1/2 present, regular rhythm Lungs & Thorax: Speaking in full sentences, bilateral equal chest rise, no tac hypnea or increased work of breathing Abdomen: soft, no tenderness, Skin: Warm, dry, no erythema, no rash. [] Back: No tenderness, no CVA tenderness. [] Extremities: No tenderness, no cyanosis, Neurologic: Alert and oriented X 3, normal motor function, normal sensory function, no focal deficits noted. [] Psychologic: Affect normal, judgement normal, mood normal. [] Current Patient Data: Labs: Laboratory Tests Test 07/08/21 14:15 07/08/21 16:38 Urine Collection Type Unknown Urine Color Red Urine Clarity Cloudy Urine pH 6.0 (<5.0-8.0) Urine Specific [place] 1.020 (1.000-1.030) Urine Protein 30 mg/dL (NEG-TRACE) Urine Glucose (UA) 500 mg/dL (NEG) Urine Ketones (Stick) Trace mg/dL (NEG) Urine Blood Large (NEG) Urine Nitrite Negative (NEG) Urine Bilirubin Negative (NEG) Urine Urobilinogen Dipstick 1.0 mg/dL (0.2 mg/dL) Urine Leukocyte Esterase Small (NEG) Urine RBC Tntc /HPF (0-2) Urine WBC 5-10 /HPF (0-4) Urine Bacteria 0 /HPF (0-FEW) Urine Mucus Mod /LPF White Blood Count 7.8 x10^3/uL (4.0-11.0) Red Blood Count 4.39 x10^6/uL (4.30-5.70) Hemoglobin 13.7 g/dL (13.0-17.5) Hematocrit 40.9 % (39.0-53.0) Mean Corpuscular Volume 93 fL (79-100) Mean Corpuscular Hemoglobin 31 pg (25-35) Mean Corpuscular Hemoglobin Concent 34 g/dL (31-37) Red Cell Distribution Width 13.3 % (11.5-14.5) Platelet Count 176 x10^3/uL (140-400) Neutrophils (%) (Auto) 61 % (31-73) Lymphocytes (%) (Auto) 27 % (24-48) Monocytes (%) (Auto) 7 % (0-9) Eosinophils (%) (Auto) 4 % (0-3) H Basophils (%) (Auto) 1 % (0-3) Neutrophils # (Auto) 4.8 x10^3/uL (1.8-7.7) Lymphocytes # (Auto) 2.1 x10^3/uL (1.0-4.8) Monocytes # (Auto) 0.6 x10^3/uL (0.0-1.1) Eosinophils # (Auto) 0.3 x10^3/uL (0.0-0.7) Basophils # (Auto) 0.1 x10^3/uL (0.0-0.2) Laboratory Tests 07/08/21 16:38 Vital Signs: Vital Signs Date Time Temp Pulse Resp B/P (MAP) Pulse Ox O2 Delivery O2 Flow Rate FiO2 07/08/21 14:08 98.1 73 12 179/88 (118) 96 Room Air 98.1 EKG: EKG: [] Radiology/Procedures: Radiology/Procedures: []IMAGING REPORT Signed PATIENT: JETT KONGACCOUNT: [id number] : 1945 LOCATION: ER AGE: 75 SEX: M EXAM STATUS: REG ER ORD. PHYSICIAN: LES NAVARRO DO REASON: hematuria PROCEDURE: CT ABD PELV W/ IV CONTRST ONLY CT abdomen and pelvis with contrast PQRS statement: CT scans at this facility use dose reduction including either automated exposure control, iterative reconstructions, and /or weight based radiation dosing via mA and kV modification when appropriate to reduce radiation dose to as low as reasonably achievable. Contrast: 60 mL of opaque 300 intravenous contrast. HISTORY: Hematuria. Abdomen findings: Calcified granuloma left lung base. Coronary calcified plaque. Lumbar disc bulges and facet spurring with spinal canal and neural foraminal stenoses. Liver, spleen, pancreas, adrenal glands unremarkable. There is mild bilateral perinephric edema. Normal nephrograms. There is mild distended left extrarenal pelvis diameter 2 cm could be due to low-grade ureteropelvic junction obstruction. Postcontrast imaging limits assessment for small urinary calculi although in light of this no urinary calculi are evident. Sigmoid colonic diverticulosis. No bowel obstruction or inflammation. Appendix is negative. Aortoiliac artery calcified plaque. No abdominal fluid or adenopathy. Pelvis findings: Bladder, rectum and bones are unremarkable. There is mild heterogeneous density or enhancement of the prostate of uncertain significance. No pelvic fluid or adenopathy. IMPRESSION: 1. No acute process. Appendix is negative. 2. Mild dilated left extrarenal pelvis with a diameter of 2 cm perhaps due to low-grade ureteropelvic junction obstruction. Mild bilateral perinephric edema, with normal nephrograms, perhaps related to renal insufficiency. 3. Sigmoid colonic diverticulosis without diverticulitis. Electronically signed by: Rafal Osorio MD (07/08/2021 5:48 PM) [facility] DICTATED and SIGNED BY: RAFAL OSORIO MD DATE: 07/08/21 [id number] 0 Course & Med Decision Making: Course & Med Decision Making Pertinent Labs and Imaging studies reviewed. (See chart for details) Concer hematuria and increased urinary frequency, will tx for uti. Aorta with calcifications on CT imaging. Patient with asymptomatic hypertension. Possible ureteral stone but no hydronephrosis. Patient calm, comfortable with no distress, abdominal or flank pain. Will discharge home with strict ED return precautions were given for syncope, worsening pain, fever, flulike symptoms or nausea or vomiting. Encouraged urgent outpatient follow-up with PMD for reev aluation of hematuria-may benefit from urology if does not resolve with abx (for painless hematuria). Life-threatening processes were considered but are low suspicion at this time, given history, physical exam and ED workup. Pt was educated on all prescription medications and adverse effects. All patient's questions were answered and pt was stable at time of discharge. Life/limb-threatening differential includes but is not limited to, trauma, infection, nephrolithiasis, kidney disease, malignancy, obstructive uropathy, BPH, AAA/AVF/aortic dissection, or schistosomiasis. I have spoken with the patient and/or caregivers. I explained the patient's condition, diagnoses and treatment plan based on the information available to me at this time. I have answered the patient and/or caregiver's questions and addressed any concerns. The patient and/or caregivers have a good understanding of patient's diagnosis, condition and treatment plan as can be expected at this point. Vital signs have been stable. Patient's condition is stable and appropriate for discharge from the emergency department. Patient will pursue further outpatient evaluation with primary care physician or other designated or consulting physician as outlined in the discharge instructions. The patient and/or caregivers are agreeable to this plan of care and follow-up instructions have been explained in detail. The patient and/or caregivers have received these instructions in written form and have expressed an understanding of the discharge instructions. The patient and/or caregivers are aware that any significant change of condition or worsening of symptoms should prompt immediate return to this or the closest emergency department or call to 911. Yasmeen Disclaimer: Dragon Disclaimer: This electronic medical record was generated, in whole or in part, using a voice recognition dictation system. Departure Departure Impression: Primary Impression: Hematuria Additional Impression: Increased urinary frequency Disposition: HOME / SELF CARE / HOMELESS Condition: STABLE Referrals: CB PIPER MD (PCP) Follow-up with your primary care physician in 3 days for re-evaluation OR FOLLOW UP WITH FAMILY MEDICINE: [address] [place] [address] Patient Instructions: Hematuria, Adult, Urinary Tract Infection Additional Instructions: EMERGENCY DEPARTMENT GENERAL DISCHARGE INSTRUCTIONS Thank you for coming to [facility] Emergency Department (ED) today and trusting us with you care. We trust that you had a positive experience in our Emergency Department. If you wish to speak to the department management, you may call the Director at [phone]. YOUR FOLLOW UP INSTRUCTIONS ARE FOLLOWS: 1. Do you have a private Doctor? If you do not have a private doctor, please ask for a resource list of physicians or clinics that may be able to assist you with follow up care. 2. The Emergency Physicain has interpreted your x-rays. The X-Ray specialist will also review them. If there is a change in the findings, you will be notified in 48 hours when at all possible. 3. A lab test or culture has been done, your results will be reviewed and you will be notified if you need a change in treatment. ADDITIONAL INSTRUCTIONS AND INFORMATION: 1. Your care today has been supervised by a physician who is specially trained in emergency care. Many problems require more than one evaluation for a complete diagnosis and treatment. We recommend that you schedule your follow up appointment as recommended to ensure complete treatment of you illness or injury. If you are unable to obtain follow up care and continue to have a problem, or if your condition worsens, we recommend that you return to the ED. 2. We are not able to safely determine your condition over the phone nor are we able to give sound medical advice over the phone. For these safety reasons, if you call for medical advice we will ask you to come to the ED for further evaluation. 3. If you have any questions regarding these discharge instructions please call the ED at [phone]. SAFETY INFORMATION: In the interest of safety, wellness, and injury prevention; we encourage you to wear your sealbelt, if you smoke; quite smoking, and we encourage family to use a protective helmet for bicycling and other sporting events that present an increased risk for head injury. IF YOUR SYMPTOMS WORSEN OR NEW SYMPTOMS DEVELOP, OR YOU HAVE CONCERNS ABOUT YOUR CONDITION; OR IF YOUR CONDITION WORSENS WHILE YOU ARE WAITING FOR YOUR FOLLOW UP APPOINTMENT; EITHER CONTACT YOUR PRIMARY CARE DOCTOR, THE PHYSICIAN WHOSE NAME AND NUMBER YOU WERE GIVEN, OR RETURN TO THE ED IMMEDIATELY. Scripts Cefpodoxime Proxetil (CEFPODOXIME PROXETIL) 200 Mg Tablet 1 TAB PO BID for 14 Days, #28 TAB Prov: LES NAVARRO DO 07/08/21 LES NAVARRO DO Jul 08, 2021 16:59
[2021-07-08 17:13] LABS: CREATININE 1.2 mg/dL (0.7-1.3); GFR 59.2; POTASSIUM 4.1 mmol/L (3.5-5.1)
[2021-07-08] MEDS ORDERED: IOHEXOL 300 MG/ML 100ML VIAL. IV ONE (17:15)
[2021-07-08 17:21] LABS: ALBUMIN 3.9 g/dL (3.4-5.0); ALBUMIN/GLOBULIN RATIO 1.1 (1.0-1.7); TOTAL BILIRUBIN 0.5 mg/dL (0.2-1.0); TOTAL PROTEIN 7.5 g/dL (6.4-8.2)
[2021-07-08] MEDS ORDERED: CONTRAST GIVEN. MC PRN (17:30)
--- NOTE | 2021-07-08 17:50 | RAD ---
CT abdomen and pelvis with contrast PQRS statement: CT scans at this facility use dose reduction including either automated exposure cont rol, iterative reconstructions, and /or weight based radiation dosing via mA and kV modification when appropriate to reduce radiation dose to as low as reasonably achievable. Contrast: 60 mL of opaque 300 intravenous contrast. HISTORY: Hematuria. Abdomen findings: Calcified granuloma left lung base. Coronary calcified plaque. Lumbar disc bulges a nd facet spurring with spinal canal and neural foraminal stenoses. Liver, spleen, pancreas, adrenal g lands unremarkable. There is mild bilateral perinephric edema. Normal nephrograms. There is mild dist ended left extrarenal pelvis diameter 2 cm could be due to low-grade ureteropelvic junction obstructi on. Postcontrast imaging limits assessment for small urinary calculi although in light of this no uri nary calculi are evident. Sigmoid colonic diverticulosis. No bowel obstruction or inflammation. Appen fe is negative. Aortoiliac artery calcified plaque. No abdominal fluid or adenopathy. Pelvis findings: Bladder, rectum and bones are unremarkable. There is mild heterogeneous density or e nhancement of the prostate of uncertain significance. No pelvic fluid or adenopathy. IMPRESSION: 1. No acute process. Appendix is negative. 2. Mild dilated left extrarenal pelvis with a diameter of 2 cm perhaps due to low-grade ureteropelvic junction obstruction. Mild bilateral perinephric edema, with normal nephrograms, perhaps related to renal insufficiency. 3. Sigmoid colonic diverticulosis without diverticulitis. Electronically signed by: Yandel Osorio MD (07/08/2021 5:48 PM) [facility]
[2021-07-08] MEDS ORDERED: CEFP200T PO (17:59)
== END 2021-07-08 18:05 | disposition home or self-care (01) ==
LOC: ER 13:25
DX: R31.9 Hematuria, unspecified (principal); R35.0 Frequency of micturition; E10.9 Type 1 diabetes mellitus without complications; Z95.5 Presence of coronary angioplasty implant and graft
CPT/HCPCS: 36415; 74177; 80053; 81001; 85025; 87086; 99285; Q9967

== ENCOUNTER 2021-07-10 14:10 | Emergency (ER) | payer OTHER ==
[~2021-07-10] VITALS: Ht 165.1 cm; Wt 72.8 kg
[~2021-07-10 14:10] MED LIST changes: +CEFP200T PO
--- NOTE | 2021-07-10 15:02 | PHYS DOC ---
Past Medical History Past Medical History: Diabetes-Type I Past Surgical History: Other Additional Past Surgical Histo: CARDIAC STENTS Smoking Status: Never Smoker Alcohol Use: None General Adult EDM: Chief Complaint: BLOOD IN URINE HPI: HPI: Patient is a 75-year-old male who presents to the emergency department for hematuria that started on Thursday. Patient is reporting bright red bleeding with clots. He is also reporting dysuria, urinary frequency and urgency. Patient does not have a history of hematuria. He has a history of diabetes, hypertension hyperlipidemia. He denies nausea, vomiting, fevers, abdominal pain, back pain. Review of Systems: Review of Systems: Constitutional: See HPI GI: See HPI : See HPI Musculoskeletal: See HPI Heart Score: C/O Chest Pain: N/A Risk Factors: Risk Factors: DM, Current or recent (<one month) smoker, HTN, HLP, family history of CAD, obesity. Risk Scores: Score 0 - 3: 2.5% MACE over next 6 weeks - Discharge Home Score 4 - 6: 20.3% MACE over next 6 weeks - Admit for Clinical Observation Score 7 - 10: 72.7% MACE over next 6 weeks - Early Invasive Strategies Allergies: Allergies: Allergies Coded Allergies Type Severity Reaction Last Updated Verified No Known Drug Allergies 09/29/18 No Physical Exam: PE: Constitutional: Well developed, well nourished, no acute distress, non-toxic appearance. [] HENT: Normocephalic, atraumatic, bilateral external ears normal, oropharynx moist, no oral exudates, nose normal. [] Eyes: PERRL, EOMI, conjunctiva normal, no discharge. [] Neck: Normal range of motion, no stridor Cardiovascular:Heart rate regular rhythm, no murmur [] Lungs & Thorax: Bilateral breath sounds clear to auscultation [] Abdomen: Bowel sounds normal, soft, no tenderness, no masses, no pulsatile masses. [] Skin: Warm, dry, no erythema, no rash. [] Back: No tenderness, no CVA tenderness. [] Extremities: No tenderness, no cyanosis, no clubbing, ROM intact, no edema. [] Neurologic: Alert and oriented X 3, normal motor function, normal sensory function, no focal deficits noted. [] Psychologic: Affect normal, judgement normal, mood normal. [] Current Patient Data: Labs: Laboratory Tests Test 11/17/21 14:40 07/10/21 15:43 Urine Collection Type Unknown Urine Color Red Urine Clarity Clear Urine pH 6.5 Urine Specific [place] <=1.005 Urine Protein 100 mg/dL Urine Glucose (UA) 100 mg/dL Urine Ketones (Stick) Negative mg/dL Urine Blood Large Urine Nitrite Negative Urine Bilirubin Negative Urine Urobilinogen Dipstick 0.2 mg/dL Urine Leukocyte Esterase Trace Urine RBC Tntc /HPF Urine WBC Occ /HPF Urine Bacteria 0 /HPF White Blood Count 6.3 x10^3/uL Red Blood Count 4.05 x10^6/uL Hemoglobin 13.0 g/dL Hematocrit 37.5 % Mean Corpuscular Volume 93 fL Mean Corpuscular Hemoglobin 32 pg Mean Corpuscular Hemoglobin Concent 35 g/dL Red Cell Distribution Width 13.2 % Platelet Count 169 x10^3/uL Neutrophils (%) (Auto) 61 % Lymphocytes (%) (Auto) 27 % Monocytes (%) (Auto) 8 % Eosinophils (%) (Auto) 4 % Basophils (%) (Auto) 1 % Neutrophils # (Auto) 3.9 x10^3/uL Lymphocytes # (Auto) 1.7 x10^3/uL Monocytes # (Auto) 0.5 x10^3/uL Eosinophils # (Auto) 0.3 x10^3/uL Basophils # (Auto) 0.1 x10^3/uL Sodium Level 137 mmol/L Potassium Level 4.0 mmol/L Chloride Level 101 mmol/L Carbon Dioxide Level 31 mmol/L Anion Gap 5 Blood Urea Nitrogen 15 mg/dL Creatinine 1.0 mg/dL Estimated GFR (Cockcroft-Gault) 73.0 Glucose Level 186 mg/dL Calcium Level 8.7 mg/dL EKG: EKG: [] Radiology/Procedures: Radiology/Procedures: []PROCEDURE: CT ABDOMEN PELVIS WO CONTRAST EXAM: CT ABDOMEN/PELVIS WITHOUT CONTRAST. HISTORY: Hematuria. TECHNIQUE: Computed tomography of the abdomen and pelvis was performed without intravenous contrast. One or more of the following individualized dose reduction techniques were utilized for this examination: 1. Automated exposure control. 2. Adjustment of the mA and/or kV according to patient size. 3. Use of iterative reconstruction technique. COMPARISON: 07/08/2021. FINDINGS: Lung windows through the visualized portions of the bases reveal mild atelectasis. Coronary atherosclerotic calcifications are noted. Bone windows reveal no suspicious lesions. There are no renal or ureteral calculi. There are no suspicious renal lesions without contrast. An extrarenal pelvis is again noted on the left. Mild perinephric stranding may be a variant of normal. The prostate is moderately enlarged. There are no clear urothelial lesions within the bladder, though CT sensitivity is low. Sigmoid diverticulosis is moderate. The appendix is not inflamed. There is no small bowel obstruction. The gallbladder is surgically absent. The liver, adrenal glands, pancreas, and spleen are unremarkable. There are no pathologically enlarged lymph nodes. A small right inguinal hernia contains only fat. IMPRESSION: 1. No renal or ureteral calculi. Moderate benign prostatic hypertrophy. 2. Small right inguinal hernia containing only fat. Electronically signed by: Billy Light MD (07/10/2021 4:28 PM) [id number] DICTATED and SIGNED BY: FRANSISCO LIGHT MD DATE: 07/10/21 [id number] 0 Course & Med Decision Making: Course & Med Decision Making Pertinent Labs and Imaging studies reviewed. (See chart for details) [] Patient presents to the emergency department for hematuria, dysuria and urinary frequency and urgency that started on Thursday. Patient is having bright red blood in his urine with clots. Work-up in the ER consisted of blood work, urinalysis and CT imaging of abdomen and pelvis. Urinalysis showed trace leukocytes, occasional white blood cells and large blood, no bacteria. Patient will be treated with antibiotic. Patient has normal renal function. No anemia. Vital signs are stable. CT imaging unremarkable. Patient given urology follo w-up. I discussed with patient all findings and diagnostic testing as well as the need to follow-up with PCP for further evaluation and treatment or return to the ER if any new or worsening symptoms. Strict return precautions were also discussed at length. Patient voiced understanding and agreement with the plan. Patient is hemodynamically stable at the time of disposition. Dragon Disclaimer: Dragon Disclaimer: This electronic medical record was generated, in whole or in part, using a voice recognition dictation system. Departure Departure Impression: Primary Impression: Hematuria Disposition: HOME / SELF CARE / HOMELESS Condition: GOOD Referrals: CB PIPER MD (PCP) Patient Instructions: Hematuria, Adult, Urinary Tract Infection Additional Instructions: You were seen in the emergency department for blood in your urine. Your vital signs are stable. Your lab work is unremarkable. You do have some some evide nce of a urinary tract infection which will be treated with an antibiotic. Please start and finish it completely. Increase your fluids. You will need to follow-up with the urologist as soon as possible. Please contact [facility] by calling to set up an appointment. I would advise you to call them tomorrow to set up an appointment. Return to the emergency department if you develop worsening of your bleeding, abdominal pain, back pain, intractable nausea or vomiting, high fevers refractory to treatment, lightheadedness, syncope. EMERGENCY DEPARTMENT GENERAL DISCHARGE INSTRUCTIONS Thank you for coming to [facility] Emergency Department (ED) today and trusting us with you care. We trust that you had a positive experience in our Emergency Department. If you wish to speak to the department management, you may call the Director at [phone]. YOUR FOLLOW UP INSTRUCTIONS ARE FOLLOWS: 1. Do you have a private Doctor? If you do not have a private doctor, please ask for a resource list of physicians or clinics that may be able to assist you with follow up care. 2. The Emergency Physicain has interpreted your x-rays. The X-Ray specialist will also review them. If there is a change in the findings, you will be notified in 48 hours when at all possible. 3. A lab test or culture has been done, your results will be reviewed and you will be notified if you need a change in treatment. ADDITIONAL INSTRUCTIONS AND INFORMATION: 1. Your care today has been supervised by a physician who is specially trained in emergency care. Many problems require more than one evaluation for a complete diagnosis and treatment. We recommend that you schedule your follow up appointment as recommended to ensure complete treatment of you illness or injury. If you are unable to obtain follow up care and continue to have a problem, or if your condition worsens, we recommend that you return to the ED. 2. We are not able to safely determine your condition over the phone nor are we able to give sound medical advice over the phone. For these safety reasons, if you call for medical advice we will ask you to come to the ED for further evaluation. 3. If you have any questions regarding these discharge instructions please call the ED at [phone]. SAFETY INFORMATION: In the interest of safety, wellness, and injury prevention; we encourage you to wear your sealbelt, if you smoke; quite smoking, and we encourage family to use a protective helmet for bicycling and other sporting events that present an increased risk for head injury. IF YOUR SYMPTOMS WORSEN OR NEW SYMPTOMS DEVELOP, OR YOU HAVE CONCERNS ABOUT YOUR CONDITION; OR IF YOUR CONDITION WORSENS WHILE YOU ARE WAITING FOR YOUR FOLLOW UP APPOINTMENT; EITHER CONTACT YOUR PRIMARY CARE DOCTOR, THE PHYSICIAN WHOSE NAME AND NUMBER YOU WERE GIVEN, OR RETURN TO THE ED IMMEDIATELY. Scripts Cephalexin (KEFLEX) 500 Mg Capsule 1 CAP PO QID for 10 Days, #40 CAP 0 Refills Prov: ELISE MCINTYRE APRN 07/10/21 ELISE MCINTYRE APRN Jul 10, 2021 15:02
[2021-07-10 15:14] LABS: BILIRUBIN,URINE NEGATIVE (NEG); CLARITY,URINE CLEAR; COLOR,URINE RED; NITRITE,URINE NEGATIVE (NEG); PH,URINE 6.5 (<5.0-8.0); PROTEIN,URINE 100 mg/dL (NEG-TRACE); UROBILINOGEN,URINE 0.2 mg/dL (0.2 mg/dL)
[2021-07-10 15:22] LABS: RBC,URINE TNTC /HPF (0-2)
[2021-07-10 15:23] LABS: BACTERIA,URINE 0 /HPF (0-FEW); WBC,URINE OCC /HPF (0-4)
[2021-07-10 15:52] LABS: BASO # 0.1 x10^3/uL (0.0-0.2); BASO % 1 % (0-3); EOS # 0.3 x10^3/uL (0.0-0.7); EOS % 4 % (0-3); HEMATOCRIT 37.5 % (39.0-53.0); LYMPH # 1.7 x10^3/uL (1.0-4.8); LYMPH % 27 % (24-48); MEAN CORPUSCULAR HEMOGLOBIN 32 pg (25-35); MEAN CORPUSCULAR HGB CONC 35 g/dL (31-37); MEAN CORPUSCULAR VOLUME 93 fL (79-100); MONO # 0.5 x10^3/uL (0.0-1.1); MONO % 8 % (0-9); NEUT # 3.9 x10^3/uL (1.8-7.7); NEUT % 61 % (31-73); PLATELET COUNT 169 x10^3/uL (140-400); RED BLOOD COUNT 4.05 x10^6/uL (4.30-5.70); RED CELL DISTRIBUTION WIDTH 13.2 % (11.5-14.5); WHITE BLOOD COUNT 6.3 x10^3/uL (4.0-11.0)
[2021-07-10 15:59] LABS: CALCIUM 8.7 mg/dL (8.5-10.1)
--- NOTE | 2021-07-10 16:30 | RAD ---
EXAM: CT ABDOMEN/PELVIS WITHOUT CONTRAST. HISTORY: Hematuria. TECHNIQUE: Computed tomography of the abdomen and pelvis was performed without intravenous contrast. One or more of the following individualized dose reduction techniques were utilized for this examinat ion: 1. Automated exposure control. 2. Adjustment of the mA and/or kV according to patient size. 3. Use of iterative reconstruction technique. COMPARISON: 07/08/2021. FINDINGS: Lung windows through the visualized portions of the bases reveal mild atelectasis. Coronary atherosclerotic calcifications are noted. Bone windows reveal no suspicious lesions. There are no renal or ureteral calculi. There are no suspicious renal lesions without contrast. An ex trarenal pelvis is again noted on the left. Mild perinephric stranding may be a variant of normal. The prostate is moderately enlarged. There are no clear urothelial lesions within the bladder, though CT sensitivity is low. Sigmoid diverticulosis is moderate. The appendix is not inflamed. There is no small bowel obstruction . The gallbladder is surgically absent. The liver, adrenal glands, pancreas, and spleen are unremarkabl e. There are no pathologically enlarged lymph nodes. A small right inguinal hernia contains only fat. IMPRESSION: 1. No renal or ureteral calculi. Moderate benign prostatic hypertrophy. 2. Small right inguinal hernia containing only fat. Electronically signed by: Billy Light MD (07/10/2021 4:28 PM) LAURA
[2021-07-10] MEDS ORDERED: CEPH500C PO (17:00)
[2021-07-10 18:16] VITALS: BP 194/92
== END 2021-07-10 18:25 | disposition home or self-care (01) ==
LOC: ER 14:10
DX: R31.9 Hematuria, unspecified (principal); R30.0 Dysuria; R39.15 Urgency of urination; E10.9 Type 1 diabetes mellitus without complications; Z95.5 Presence of coronary angioplasty implant and graft
CPT/HCPCS: 36415; 74176; 80048; 81001; 85025; 87086; 99284-25; 99285-25